=== PATIENT | male | born 1980 | race African-American/Black ===

== ENCOUNTER 2024-09-12 13:00 | Outpatient (AMB) | payer OTHER, SELFPAY ==
--- NOTE | 2024-09-12 13:05 | A.OFFPC_ITS ---
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 Allergies No Known Allergies Allergy (Verified 09/12/24 13:28) Medication List - Last Reconciled 09/12/24 by Mervat Berry CNP No Known Home Meds Tobacco use date assessed: 09/12/24 Dental Screening Dental Screen Date: 09/12/24 Did you have a dental visit in the last 12 months?: Yes Did you have a dental problem in the last 6 months where you did not have access to dental care?: No Was dental information given to patient?: Patient has dentist HPI HPI Comments History of Present Illness Details The patient presents to establish care and address sleep apnea and other general health maintenance issues. Last PCP: [facility]. Last office visit/CPE: 10/2023. Last comprehensive lab work: April 2024. The patient is a 44-year-old male presenting to establish care and address ongoing health concerns. The patient reports a history of obstructive sleep apnea, which was diagnosed in 2016. He has been using a CPAP machine since diagnosis but reports that the machine is now outdated and is not functioning optimally. The patient was unable to obtain a new machine due to a lapse in communication with the prior physician. The patient also has a history of hyperlipidemia, which was identified via blood work as being on the higher end but is not currently managed with medication. There is also a familial history of high cholesterol, as the patient's mother has high levels as well. Additionally, the patient mentions a deviated nasal septum that may contribute to nasal congestion and sleep disturbances. The issue was identified approximately 15 years ago but has not been surgically addressed. The patient reports a history of appendectomy with no complications and no current medications besides testosterone replacement therapy (TRT) and multivitamins. He exercises regularly and generally maintains a healthy diet but does have a noted sweet tooth. The patient reports smoking cigars approximately twice a week, with increased frequency during warmer months, and has been doing so consistently for about two years. Alcohol consumption is limited to one or two beers twice a week. 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 - Exercises regularly, 3-6 times a week. - Diet includes healthy foods with occas ional sweets. - Resides in [place]. - Does not use recreational drugs. - Drinks alcohol occasionally, 1-2 beers , twice a week. - Smokes cigars approximately twice a we ek, depending on weather. - No cigarette smoking or vaping noted. Health Maintenance - Reports an outdated CPAP machine for s leep apnea, needs replacement. - Immunization history includes an unkno wn date of last tetanus booster. - No flu vaccine received this season. D eclines flu vaccine. - BMI recorded as 32.5 with obesity clas sification noted but also acknowledges muscular build. - Recent dental checkup within the last six months. - Recent vision check and acquisition of reading glasses within the past year. Labs - Labs: Previous comprehensive blood sharri t done in April. [facility] Medical History (Updated 09/12/24 @ 14:09 by Mervat Berry CNP) Headache Surgical History (Updated 09/12/24 @ 13:22 by Nancy Oscar) Hx of appendectomy Family History (Updated 09/12/24 @ 13:23 by Nancy Oscar) Mother High cholesterol Social History Housing: House Patient Tobacco Use Status: Current someday Tobacco user Tobacco use type: Cigar Years Smoked: Smoked 2 cigas weekly for the past 2 years e-Cigarette/Vaping Use: Never Used Second Hand Smoke Exposure: No service: No Current occupational status: employed Current occupation: [employer] Current occupational exposures/hazards: No Cognitive needs: No Hearing needs: No Vision needs: No Questionnaire PHQ-9 Over the last 2 weeks, how often have you been bothered by any of the following problems? 1. Little interest or pleasure in doing things: not at all 2. Feeling down, depressed, or hopeless: not at all 3. Trouble falling or staying asleep, or sleeping too much: not at all 4. Feeling tired or having little energy: not at all 5. Poor appetite or overeating: not at all 6. Feeling bad about yourself - or that you are a failure or have let yourself or your family down: not at all 7. Trouble concentrating on things, such as reading the newspaper or watching television: not at all 8. Moving or speaking so slowly that other people could have noticed. Or the opposite - being so fidgety or restless that you have been moving around a lot more than usual: not at all 9. Thoughts that you would be better off or of hurting yourself in some way: not at all Total score: 0 Depression Screening Interpretation: Negative Depression Screening Done: Yes 40584 - PHQ-9 Billing: Yes Source: Developed by Drs. David Medina, Candi Cano, Jeb Lagunas and colleagues, with an educational abdi from [employer]. Thrive Questionnaire Date Thrive assessed: 09/12/24 I am a: Patient What is your living situation today?: I have a steady place to live Within the past 12 months, did the food you bought not last and you didn't have the money to get more?: Never true Within the past 12 months, did you worry whether your food would run out before you got money to buy more?: Never true Do you have trouble paying for medicines?: No Do you have trouble getting transportation to medical appointments?: No Do you have trouble paying your heating and electricity bill?: No Do you have trouble taking care of your child, family member or friend?: No Do you have trouble with day-to-day activities such as bathing, preparing meals, shopping, managing finances, etc.?: No Are you currently unemployed and looking for a job?: No Are you interested in more education?: No Please select the resources that you would like help with: None Currently or been in a relationship where the following occur: No concerns reported THRIVE Score: 0 AUDIT C Alcohol Use Questionnaire (AUDIT-C) 1. How often do you have a drink containing alcohol?: 2-4 times a month 2. How many drinks containing alcohol do you have on a typical day when you are drinking?: 1 or 2 3. How often do you have six or more drinks on one occasion?: Never Total Score: 2 Score Reviewed/Action Taken: Yes HONEY-7 AMB Questionnaire HONEY-7 Date HONEY - 7 assessed: 09/12/24 Feeling nervous, anxious, or on edge: 0 = Not at all Not being able to stop or control worryin = Not at all Worrying too much about different things: 0 = Not at all Trouble relaxin = Not at all Being so restless that it is hard to sit still: 0 = Not at all Becoming easily annoyed or irritable: 0 = Not at all Feeling afraid as if something awful might happen: 0 = Not at all Total HONEY-7 score (0-4 normal; 5-9 mild; 10-14 moderate; 15-21 severe): 0 Source: Developed by Drs. David Medina, Candi Cano, Jeb Lagunas and colleagues, with an educational abdi from [employer]. HONEY-7 Assessment Billing HONEY-7 Assessment Tool: HONEY-7 Assessment 98745 Review of Systems Const Details: Const Denies chills, Denies fatigue, Denies fever(s), Denies headache(s) and Denies weakness ENT Denies dizziness and Denies headache(s) Card Denies chest pain, Denies lightheadedness, Denies dyspnea and Denies other (Palpitations) Resp Denies cough, Denies dyspnea, Denies wheezing and Denies other ( shortness of breath) GI Denies abdominal pain, Denies melena, Denies hematochezia, Denies change in bowel habits, Denies dyspepsia and Denies nausea Denies hematuria and Denies dysuria Musc Denies abnormal gait, Denies myalgias, Denies arthralgias, Denies numbness and Denies tingling Skin/Breast Denies rash, Denies unusual bruising and Denies wounds Neuro Denies abnormal gait, Denies dizziness, Denies headache(s), Denies memory loss, Denies numbness, Denies Sensory deficit (Neuro), Denies tingling and Denies weakness Psych Denies anxiety, Denies depression, Denies memory loss Endo Denies cold intolerance, Denies fatigue, Denies heat intolerance, Denies polydipsia and Denies polyuria Aller/Immun Denies wheezing Physical exam (Primary Care) Vital Signs: Last Vital Signs Temp 97.3 F 09/12/24 13:18 Pulse 76 09/12/24 13:18 Resp 16 09/12/24 13:18 BP 117/63 09/12/24 13:18 Pulse Ox 96 09/12/24 13:18 Oxygen Delivery Method Room Air 09/12/24 13:18 BMI result Body Mass Index 32.5 Tobacco/Smoking Status: Tobacco use Status Tobacco use date assessed 09/12/24 09/12/24 13:17 Patient Tobacco Use Status Current someday Tobacco 09/12/24 13:17 Tobacco use type Cigar 09/12/24 13:17 e-Cigarette/Vaping Use Never Used 09/12/24 13:17 PHQ-9: PHQ-9 Score PHQ-9: Total score 0 09/12/24 13:09 Depression Screening Interpretation: Negative Thrive Assessment: Date of Thrive Assessment Date Thrive assessed 09/12/24 09/12/24 13:09 Currently or been in a relationship where the following occur: No concerns reported Const Other: General: no acute distress and well developed Nutritional Appearance: well nourished Orientation/consciousness: patient oriented x3 HENMT Head: Yes normocephalic and Yes atraumatic Eyes General: appearance normal, both eyes and all related structures Pupils: Equal, round and reactive pupils present EOM: EOMs intact bilaterally Resp Effort & Inspection: normal respiratory effort Auscultation: clear to auscultation bilaterally Cardio Rate: regular rate Rhythm: regular rhythm Heart sounds: S1 normal heart sound present, S2 normal heart sound present, no gallops, no murmurs and no rubs GI Palpation (GI): No Abdominal aortic bruit present, Soft to palpation, nontender, No hepatosplenomegaly present and No Rebound tenderness present Auscultation: normal bowel sounds General: Yes no CVA tenderness Back/Spine/Pelvis Back: no CVA tenderness Cervical Spine: cervical ROM normal and No Cervical spine tenderness Thoracic/Lumbar Spine: thoraco-lumbar ROM normal, No pain with thoraco-lumbar ROM, No thoracic spinal tenderness and No lumbar spinal tenderness Extrem General: Yes normal to inspection, No edema and No calf tenderness Skin General: warm and dry. Normal skin color. Normal skin turgor Lesions: no lesions Rashes: no rashes Trauma: no lacerations or abrasions Wounds: no wounds Nails: normal Neuro General: patient oriented x3, gait normal and no focal neuro deficit Cranial nerves: Yes Equal, round and reactive pupils present Cognition (Neuro): normal cognition Gait exam (Neuro): Normal gait present Sensory Exam: No Sensory deficit (Neuro) Psych Appearance: grossly normal Affect: normal affect Attitude: cooperative Thought process: Normal thought process present Coding Level of Care Code New Pt Prev Care 40-64y(01064) Diagnoses Sleep apnea G47.30 Hyperlipidemia E78.5 Deviated nasal septum J34.2 Preventative health care Z00.00 Additional Codes HONEY-7 Assessment Billing - HNOEY-7 Assessment Tool: HONEY-7 Assessment 85371 ([id number]) PHQ-9 - 81227 - PHQ-9 Billing: Yes ([id number]) Assessment & Plan Assessment & Plan (1) Sleep apnea: Code(s): G47.30 - Sleep apnea, unspecified Category: Medical Plan: Refer to sleep medicine in [place] for an appointment. Reinforcement on updating CPAP machine. (2) Hyperlipidemia: Code(s): E78.5 - Hyperlipidemia, unspecified Category: Medical Plan: Obtain previous blood work results to review cholesterol levels. No current medication; consider management options post-review. (3) Deviated nasal septum: Code(s): J34.2 - Deviated nasal septum Category: Medical Plan: Sleep medicine referral may evaluate ENT needs post-assessment. (4) Preventative health care: Code(s): Z00.00 - Encounter for general adult medical examination without abnormal findings Category: Medical Plan: Confirm tetanus booster status. Plan I discussed the need for reviewing the patient's blood work, focusing on cholesterol levels and other relevant lab results, before determining further management for hyperlipidemia. The patient was reminded to procure the CPAP equipment details and medical history to provide comprehensive care. I encouraged continued healthy lifestyle choices concerning diet and exercise. The purpose of referrals to both sleep medicine for CPAP evaluation and potential ENT consideration was explained, with the patient understanding the sequence of assessments required. The risks of ongoing cigar smoking were noted, while discussing the value of cutback efforts. Potential for updated tetanus immunization was mentioned, based on existing records. Orders: Referrals Sleep Medicine Referral G47.30 - Sleep apnea, unspecified, J34.2 - Deviated nasal septum Patient Instructions: - Obtain and provide previous lab results from April for review. - Schedule referral appointment with sleep medicine in [place]. - Consider scheduling for a new CPAP machine as advised. - Maintain regular physical activity and balanced dietary habits. - Confirm tetanus immunization status and consider flu vaccination. - Schedule a physical examination for October. - Follow up for further management as advised post-lab review. Patient was informed and verbally consented to the use of an ambient scribe for clinic note documentation during this visit.
[2024-09-12 13:18] VITALS: BP 117/63; PULSE 76; RESP 16; TEMP 36.3; O2SAT 96; BMI 32.5
--- OUTSIDE RECORDS SUMMARY | 2024-09-19 13:53 | XMS_ITS ---
Author Organization [facility] Address [address], [place] [id number] Care Team Providers Care Sole Filler Name Role Phone PURA NAE Primary Care Provider ALLERGIES No Known Allergies REASON FOR REFERRAL Reason Please call [facility] to renew patient's CPAP machine orders Diagnosis 1 Obstructive sleep ap bismark (G47.33) Referral Organization [facility] Referring Provider First Name NAE Referring Provider Last Name ELYSIAN Referring Provider Speciality Nurse Baylee powers Referred Organization [facility] Referred Address [address], [id number], Referred Provider Specialty Sleep Medici ne Referral Priority Routine Reason surgical consult for deviated septum please, does not matter who he sees Diagnosis 1 Deviated nasal septu m (J34.2) Referral Organization [facility] Referring Provider First Name NAE Referring Provider Last Name ELYSIAN Referring Provider Speciality Nurse Baylee powers Referred Organization [facility] Referred Address [address], [phone], Referred Provider Specialty Ear, nose an d throat surgeon General Notes KIRSTIN ANDUJAR 0 10/20/2023 02:46:16 PM >demographics, referral and ov note faxed to [facility] [phone] Referral Priority Routine REASON FOR VISIT Annual CPE MEDICATIONS Medication SIG (Take, Route, Fr equency, Duration) Notes Start Date End Date Status Vitamin D3 Active DHEA Active Multi Complete - as directed Orally Active Brielle 3 Active SOCIAL HISTORY Tobacco Use: Social History Observation Description Date Details (start date - stop date) Never Smoker NA - NA Sex Assigned At : Social History Observation Description Sex Assigned At Unknown Tobacco Use/Smoking Question Answer Notes Tobacco use: nonsmoker Section Notes: Smokes cigars - 2 x per week Lives in [place], [place] with , 3 sons and nephew PROBLEMS Problem Type ICD Code Onset Dates Problem Status W/U Status Risk SNOMED Code Notes Problem Hypercholesterolemia (E78.00) Active confirmed Hypercholestero lemia (38422846) Problem Benign prostatic hyperplasia without lower urinary tract symptoms (N40.0) Active confirmed Benign pros tatic hypertrophy without outflow obstruction (806487781) Problem Obstructive sleep apnea (G47.33) Active confirmed Obstructive s leep apnea (36464768) Problem Deviated nasal septu m (J34.2) Active confirmed Deviated nasal septum (654096176) VITAL SIGNS Blood pressure systolic 128 mm Hg 10/18/19 24 Blood pressure diastolic 72 mm Hg 024 Heart Rate 86 /min 10/18/2023 Height 73.5 in 10/18/2023 Weight 247.4 lbs 10/18/2023 BMI 32.19 kg/m2 10/18/2023 Oximetry 98 % 10/18/2023 Height-cm 186.69 cm 10/18/2023 Weight-kg 112.22 kg 10/18/2023 Encounters Encounter Location Date Provider Diagnosis [facility], [address] [id number] 10/18/2023 NAE CAMACHO Annual visit for general adult medical examination with abnormal findings Z00.01 ; Depression screen Z13.31 ; Encounter for screening examination for mental health and behavioral disorders, unspecified Z13.30 ; Alcohol screening Z13.39 ; Benign prostatic hyperplasia without lower urinary tract symptoms N40.0 ; Obstructive sleep apnea G47.33 and Deviated nasal septum J34.2 ASSESSMENTS Encounter Date Diagnosis Assessment Notes Treatment Notes Treatment Clinical Notes Section Notes 10/18/2023 Annual visit for general adult medical examination with abnormal findings (ICD-10 - Z00.01) The exam today was without concern. We discussed short and long-term health goals. The exam today was without concerns, states feel safe at home. Reports having working CO2 and Smoke detectors. Encouraged to wear sunscreen. Reports wearing a seatbelt when driving or as a passenger. Encourage regular exercise of moderate intensity 30 min 5x/week. 10/18/2023 Depression screen (ICD-10 - Z13.31) PHQ9 Score: 2 low risk for major depressive disorder 10/18/2023 Encounter for screening examination for mental health and behavioral disorders, unspecified (ICD-10 - Z13.30) CAGE Questions Adapted to Include Drug Use (CAGE-AID) 1. Have you ever felt you ought to cut down on your drinking or drug use? N 2. Have people annoyed you by criticizing your drinking or drug use? N 3. Have you felt bad or guilty about your drinking or drug use? N 4. Have you ever had a drink or used drugs first thing in the morning to steady your nerves or to get rid of a hangover (eye-warehouse picker)? N Total Score: 0 Scoring: Item responses on the CAGE questions are scored 0 for no and 1 for yes answers, with a higher score being an indication of alcohol problems. A total score of two or greater is considered clinically significant. 10/18/2023 Alcohol screening (ICD-10 - Z13.39) CAGE Questions Adapted to Include Drug Use (CAGE-AID) 1. Have you ever felt you ought to cut down on your drinking or drug use? N 2. Have people annoyed you by criticizing your drinking or drug use? N 3. Have you felt bad or guilty about your drinking or drug use? N 4. Have you ever had a drink or used drugs first thing in the morning to steady your nerves or to get rid of a hangover (eye-warehouse picker)? N Total Score: 0 Scoring: Item responses on the CAGE questions are scored 0 for no and 1 for yes answers, with a higher score being an indication of alcohol problems. A total score of two or greater is considered clinically significant. 10/18/2023 Benign prostatic hyperplasia without lower urinary tract symptoms (ICD-10 - N40.0) 10/18/2023 Obstructive sleep apnea (ICD-10 - G47.33) 10/18/2023 Deviated nasal septum (ICD-10 - J34.2) 10/18/2023 Other Labs for f/u Increase statin to 20 mg-tolerating well! Will add CoQ10 Abnormal labs at last f/u-EKG done today, normal sinus rythym-no evidence of ischemic changes. Scanned into patient docs PLAN OF TREATMENT Treatment Notes Assessment Notes Annual visit for general taylor lt medical examination with abnormal findings The exam today was without concern. We discussed short and long-term health goals. The exam today was without concerns, states feel safe at home. Reports having working CO2 and Smoke detectors. Encouraged to wear sunscreen. Reports wearing a seatbelt when driving or as a passenger. Encourage regular exercise of moderate intensity 30 min 5x/week. Depression screen PHQ9 Score: 2 low risk for major depressive disorder Encounter for screening exam ination for mental health and behavioral disorders, unspecified CAGE Questions Adapted to Include Drug Use (CAGE-AID) 1. Have you ever felt you ought to cut down on your drinking or drug use? N 2. Have people annoyed you by criticizing your drinking or drug use? N 3. Have you felt bad or guilty about your drinking or drug use? N 4. Have you ever had a drink or used drugs first thing in the morning to steady your nerves or to get rid of a hangover (eye-warehouse picker)? N Total Score: 0 Scoring: Item responses on the CAGE questions are scored 0 for no and 1 for yes answers, with a higher score being an indication of alcohol problems. A total score of two or greater is considered clinically significant. Alcohol screening CAGE Questions Adapted to Include Drug Use (CAGE-AID) 1. Have you ever felt you ought to cut down on your drinking or drug use? N 2. Have people annoyed you by criticizing your drinking or drug use? N 3. Have you felt bad or guilty about your drinking or drug use? N 4. Have you ever had a drink or used drugs first thing in the morning to steady your nerves or to get rid of a hangover (eye-warehouse picker)? N Total Score: 0 Scoring: Item responses on the CAGE questions are scored 0 for no and 1 for yes answers, with a higher score being an indication of alcohol problems. A total score of two or greater is considered clinically significant. Other Labs for f/u Increas e statin to 20 mg-tolerating well! Will add CoQ10 Abnormal labs at last f/u-EKG done today, normal sinus rythym-no evidence of ischemic changes. Scanned into patient docs Referrals Referral Date Details Please call [facility] to renew patient's CPAP machine orders , [address] [place] [address], [place], [place], [id number], @[email or web address], surgical consult for deviated septum please, does not matter who he sees , [address] [place] [address], [place], [place], [phone], @[facility], Next Appt Details Follow Up: 6 Months, Reason: f/u wellness Progress Notes * GRACIE ESTRADAOB:1980 (43 yo M)Acc No.[id number]:10/18/2023 Progress Note Patient:??SURESH ESTRADA Provider:??Nae Camacho DNP :1980?Age:43 Y?Sex:Ma le Date:10/18/2023 Phone: Address:[address], [facility] [id number] Subjective: * Chief Complaints: * ?Annual CPE * HPI: ?Patient Care Team:?Sample Maker:??[facility].? Providers/Specialists: TRT through [facility]. ?Visit info:? Suresh presents today for Annual CPE. ?c/o - discuss sinuses, has history of deviated septum and has become worse. Harder to breath through nose, Rt. side >Lt. side. Referral to ENT required. ?Also needs referral for new CPAP - [employer] [facility] provide equipment - last study over 6yrs ago. * ROS:?General / Constitutional:?Patient denies??fatigue, headache, lightheadedness, weakness.?Ophthalmologic:?Patient denies??blurry vision, change in vision, eye pain.?ENT:?Patient denies??decreased hearing, difficulty in swallowing, dry mouth, ear pain, sore throat.?Respiratory:?Patient denies??chest pain, cough, shortness of breath.?Cardiovascular:?Patient denies??dizziness, irregular heartbeat, palpitations, weakness.?Gastrointestinal:?Patient denies??abdominal pain, blood in stool, heartburn.?Genitourinary:?Patient denies??blood in the urine, difficulty urinating, frequent urination.?Neurologic:?Patient denies??low back pain, tingling / numbness, tremor.?Psychiatric:?Patient denies??anxiety, depressed mood, difficulty sleeping, substance abuse.? * Medical History:?? * Surgical History:??Appendect maryana 2011Vasectomy 2017Wisdom teeth * Ocular Surgical History:?? * Hospitalization/Major Diagno stic Procedure:?? * Family History:??Father: ali ve 66 yrs, No health concerns.??Mother: alive 67 yrs, Hyperlipidemia.??Paternal Grandfather: , Heart attack.??Brother: alive, No known health concerns.??Sister: alive, No known health concerns.??3 son(s) - healthy. .?? * Social History:?Tobacco Use:?Tobacco Use/Smoking?Tobacco use:??nonsmoker ?Drugs/Alcohol:?Do you smoke marijuana?: Denies. ?Do you drink alcohol?: Yes, Socially. ?Smokes cigars - 2 x per week ?Lives in [place], [place] with , 3 sons and nephew. * Medications:??TakingVitamin D3 DHEA Multi Complete - Capsule as directed Orally Brielle 3 Medication List reviewed and reconciled with the patientTaking Vitamin D3 Taking DHEA Taking Multi Complete - Capsule as directed Orally Taking Brielle 3 Medication List reviewed and reconciled with the patient * Allergies:??N.K.D.A.no[Aller gies Verified] Objective: * Vitals:??BP:128/72mm Hg, HR: 86/min, Oxygen sat %:98%, Wt:247.4lbs, Wt-k.22 kg, Ht: 73.5 in, Ht-cm: 186.69 cm, BMI:32.19Index, Body Surface Area: 2.41. * Examination: ?General Examination: ?General appearance:??alert, pleasant, well-nourished and in no acute distress .?Head:??normocephalic, atraumatic .?Eyes:??normal, pupils equal, round, reactive to light and accommodation, extraocular movement intact (EOMI) .?Ears:??normal, auditory canal clear, tympanic membrane intact and clear, light reflex present .?Nose:??nares patent, septum intact, sinuses nontender bilaterally .?Oral cavity:??with good dentition, mucosa moist, tongue is midline .?Throat:??clear, pharynx normal, uvula midline .?Neck / thyroid:??carotid pulses are normal and without bruits, neck is supple, with full range of motion and no cervical lymphadenopathy .?Lymph nodes:??no axillary, supraclavicular or inguinal lymphadenopathy, no cervical lymphadenopathy .?Skin:??skin is warm and dry, with no rashes, good skin turgor and normal hair distribution .?Heart:??regular rate and rhythm without murmurs, gallops, clicks or rubs .?Lungs:??clear to auscultation bilaterally, with good air movement and no rales, rhonchi or wheezes .?Chest:??chest wall with no costochondral junction tenderness, no rib deformity and normal shape and expansion .?Breasts:??breast exam is normal without lesions or masses, discharge or erythema .?Abdomen:??soft with good bowel sounds, nontender, and no masses or hepatosplenomegaly .?Rectal:??not examined .?Back:??normal, without kyphoscoliosis or tenderness, full range of motion without difficulty .?Male genitourinary:??deferred.?Musculoskeletal:??FROM,.?Extremities:??normal extremity with no clubbing, cyanosis or edema, full range of motion, good capillary refill in nail beds .?Peripheral pulses:??normal 2+ arterial pulses .?Neurologic:??alert and oriented, cognitive exam grossly normal, cranial nerves 2-12 grossly intact, deep tendon reflexes 2+ symmetrical, gait normal, normal upper and lower extremity motor strength and function .?Psych:??cooperative with exam, maintains good eye contact, normal affect/mood .? Assessment: * Assessment: 1.??Annual visit for general adult medical examination with abnormal findings - Z00.01 (Primary)??2.??Depression screen - Z13.31??3.??Encounter for screening examination for mental health and behavioral disorders, unspecified - Z13.30??4.??Alcohol screening - Z13.39??5.??Benign prostatic hyperplasia without lower urinary tract symptoms - N40.0??6.??Obstructive sleep apnea - G47.33??7.??Deviated nasal septum - J34.2?? Plan: * Treatment: 2.??Depression screen?? Notes: PHQ9 Score: 2 low risk for major depressive disorder? 3.??Encounter for screening examination for mental health and behavioral disorders, unspecified?? Notes: CAGE Questions Adapted to Include Drug Use (CAGE-AID) 1. Have you ever felt you ought to cut down on your drinking or drug use? N 2. Have people annoyed you by criticizing your drinking or drug use? N 3. Have you felt bad or guilty about your drinking or drug use? N 4. Have you ever had a drink or used drugs first thing in the morning to steady your nerves or to get rid of a hangover (eye-warehouse picker)? N Total Score: 0 Scoring: Item responses on the CAGE questions are scored 0 for no and 1 for yes answers, with a higher score being an indication of alcohol problems. A total score of two or greater is considered clinically significant.? 4.??Alcohol screening?? Notes: CAGE Questions Adapted to Include Drug Use (CAGE-AID) 1. Have you ever felt you ought to cut down on your drinking or drug use? N 2. Have people annoyed you by criticizing your drinking or drug use? N 3. Have you felt bad or guilty about your drinking or drug use? N 4. Have you ever had a drink or used drugs first thing in the morning to steady your nerves or to get rid of a hangover (eye-warehouse picker)? N Total Score: 0 Scoring: Item responses on the CAGE questions are scored 0 for no and 1 for yes answers, with a higher score being an indication of alcohol problems. A total score of two or greater is considered clinically significant.? 5.??Obstructive sleep apnea? Referral To:Sleep Medicine ?Reason:Please call [facility] to renew patient's CPAP machine orders 6.??Deviated nasal septum? Referral To:Ear, nose and throat surgeon ?Reason:surgical consult for deviated septum please, does not matter who he sees 7.??Others?? Notes: Labs for f/u Increase statin to 20 mg-tolerating well! Will add CoQ10 Abnormal labs at last f/u-EKG done today, normal sinus rythym-no evidence of ischemic changes. Scanned into patient docs? * Procedure Codes:??42530 EDI F EMOTIONAL/BEHAV ASSMT, Units: 2.00 * Preventive Medicine:?Last CPE: 2020 Work physical ?Colonoscopy: No ?Endoscopy: No ?Covid Vac: Yes ?Flu Vac: No. * Follow Up:??6 Months (Reason : f/u wellness) Care Plan: * Problems:?? * Billing Information: * Visit Code:?? 59950 Preventive Care Est Pt. Age 40-64. * Procedure Codes:?? 49149 BRIEF EMOTIONAL/BEHAV ASSMT. Units: 2.00. * Sign off status: Completed true * Provider:??Nae Camacho DNP Date:??0 10/18/2023 History and Physical Notes * HPI (History of Present Illness) Category Sub-Category Detail Notes Category Not es Patient Care Team Sample Maker: [facility] Providers[facility]Special ists[facility] info Suresh presents today for Annual CPE. c/o - discuss sinuses, has history of deviated septum and has become worse. Harder to breath through nose, Rt. side > Lt. side. Referral to ENT required. Also needs referral for new CPAP - [employer] provide equipment - last study over 6yrs ago. Examination Category Sub-Category Detail Notes Category Not es General Examination General appearance: alert, p leasant, well-nourished and in no acute distress Head: normocephalic, atrau matic Eyes: normal, pupils equal , round, reactive to light and accommodation, extraocular movement intact (EOMI) Ears: normal, auditory can al clear, tympanic membrane intact and clear, light reflex present Nose: nares patent, septum intact, sinuses nontender bilaterally Throat: clear, pharynx donovan l, uvula midline Neck / thyroid: carotid pulses are n ormal and without bruits, neck is supple, with full range of motion and no cervical lymphadenopathy Heart: regular rate and rhy thm without murmurs, gallops, clicks or rubs Chest: chest wall with no c ostochondral junction tenderness, no rib deformity and normal shape and expansion Lungs: clear to auscultatio n bilaterally, with good air movement and no rales, rhonchi or wheezes Abdomen: soft with good bowel sounds, nontender, and no masses or hepatosplenomegaly Neurologic: alert and oriented, cognitive exam grossly normal, cranial nerves 2- 12 grossly intact, deep tendon reflexes 2+ symmetrical, gait normal, normal upper and lower extremity motor strength and function Skin: skin is warm and dry , with no rashes, good skin turgor and normal hair distribution Extremities: normal extremity wit h no clubbing, cyanosis or edema, full range of motion, good capillary refill in nail beds Peripheral pulses: normal 2+ arterial p ulses Back: normal, without kyph oscoliosis or tenderness, full range of motion without difficulty Breasts: breast exam is donovan l without lesions or masses, discharge or erythema Musculoskeletal: FROM, Male genitourinary: deferred Lymph nodes: no axillary, supracl avicular or inguinal lymphadenopathy, no cervical lymphadenopathy Rectal: not examined Psych: cooperative with exa m, maintains good eye contact, normal affect/mood Oral cavity: with good dentition, mucosa moist, tongue is midline Consultation Request Notes Referral Date Referring Provider Referred Provider Not es 10/18/2023 NAE CAMACHO , Please call [facility] to renew patient's CPAP machine orders 10/18/2023 NAE CAMACHO , surgical co nsult for deviated septum please, does not matter who he sees
--- OUTSIDE RECORDS SUMMARY | 2024-09-19 13:53 | XMS_ITS ---
Author Organization [facility] Address [address] [place] [id number] Care Team Providers Care Deal Architect Name Role Phone NAE CAMACHO Primary Care Provider [phone] ALLERGIES No Known Allergies REASON FOR VISIT cpe, lab review SOCIAL HISTORY Tobacco Use: Social History Observation Description Date Details (start date - stop date) Never Smoker NA - NA Sex Assigned At : Social History Observation Description Sex Assigned At Unknown Tobacco Use/Smoking Question Answer Notes Tobacco use: nonsmoker Section Notes: Smokes cigars - 2 x per week Lives in [place], [place] with , 3 sons and nephew Encounters Encounter Location Date Provider Diagnosis [facility], [address] [id number] 08/10/2023 NAE CAMACHO PLAN OF TREATMENT No Information Progress Notes * GRACIE ESTRADAOB:1980 (44 yo M)Acc No.[id number]:08/10/2023 Progress Note Patient:??COLUMBA ESTRADA Provider:??Nae Camacho DNP :1980?Age:43 Y?Sex:Lauren le Date:08/10/2023 Phone: Address:[address] [place] [address] Subjective: * Chief Complaints: * ?1. Cpe, lab review. * HPI: ?Patient Care Team:? Providers/Specialists: TRT through [facility]. * Medical History:??Sleep Apne a (uses CPAP). * Surgical History:??Appendect maryana 2011, Vasectomy 2017, [place] teeth . * Family History:??Father: ali ve 66 yrs, No health concerns.??Mother: alive 67 yrs, Hyperlipidemia.??Paternal Grandfather: , Heart attack.??Brother: alive, No known health concerns.??Sister: alive, No known health concerns.??3 son(s) - healthy. .?? * Social History:?Tobacco Use:?Tobacco Use/Smoking?Tobacco use:??nonsmoker ?Drugs/Alcohol:?Do you smoke marijuana?: Denies. ?Do you drink alcohol?: Yes, Socially. ?Smokes cigars - 2 x per week Lives in [place], [place] with , 3 sons and nephew. * Allergies:??N.K.D.A. Objective: Assessment: Plan: * Treatment: * Preventive Medicine:?Last CPE: 2020 Work physical Colonoscopy: No Endoscopy: No Covid Vac: Yes Flu Vac: No. Care Plan: * Problems:?? * Billing Information: * Visit Code:?? * Procedure Codes:?? * Sign off status: Pending * Provider:??Nae Camacho DNP Date:??1 History and Physical Notes * HPI (History of Present Illness) Category Sub-Category Detail Notes Category Not es Patient Care Team Providers/ Specialists: TRT through [facility]
--- OUTSIDE RECORDS SUMMARY | 2024-09-19 13:53 | XMS_ITS | Patient Health Record ---
Author Organization [facility], [facility] Address [address] [place], [place] [phone] Care Team Providers Care Knowledge Management Advisor Name Role Phone PURA NAE Primary Care Provider [phone] ALLERGIES No Known Allergies REASON FOR REFERRAL Reason Please call J and L to renew patient's CPAP machine orders Diagnosis 1 Obstructive sleep ap bismark (G47.33) Referral Organization [facility] Referring Provider First Name NAE Referring Provider Last Name CHOWCHILLA Referring Provider Speciality Nurse Baylee powers Referred Organization [facility] Referred Address [address] [place], [place],[phone], Referred Provider Specialty Sleep Medici ne Referral Priority Routine Reason surgical consult for deviated septum please, does not matter who he sees Diagnosis 1 Deviated nasal septu m (J34.2) Referral Organization [facility] Referring Provider First Name NAE Referring Provider Last Name CHOWCHILLA Referring Provider Speciality Nurse Baylee powers Referred Organization [facility] Referred Address [address], [phone], Referred Provider Specialty Ear, nose an d throat surgeon General Notes KIRSTIN ANDUJAR 0 10/20/2023 02:46:16 PM >demographics, referral and ov note faxed to [facility] [phone] Referral Priority Routine MEDICATIONS Medication SIG (Take, Route, Fr equency, Duration) Notes Start Date End Date Status Vitamin D3 Active DHEA Active Multi Complete - as directed Orally Active [employer] 3 Active SOCIAL HISTORY Tobacco Use: Social History Observation Description Date Details (start date - stop date) Never Smoker NA - NA Sex Assigned At : Social History Observation Description Sex Assigned At Unknown Tobacco Use/Smoking Question Answer Notes Tobacco use: nonsmoker Section Notes: Smokes cigars - 2 x per week Lives in [place], [place] with , 3 sons and nephew Smokes cigars - 2 x per week Lives in [place], [place] with , 3 sons and nephew Smokes cigars - 2 x per week Lives in [place], [place] with , 3 sons and nephew Smokes cigars - 2 x per week Lives in [place], [place] with , 3 sons and nephew PROBLEMS Problem Type ICD Code Onset Dates Problem Status W/U Status Risk SNOMED Code Notes Problem Deviated nasal septu m (J34.2) Active confirmed Deviated nasal septum (520043053) Problem Benign prostatic hyperplasia without lower urinary tract symptoms (N40.0) Active confirmed Benign pros tatic hypertrophy without outflow obstruction (174758482) Problem Hypercholesterolemia (E78.00) Active confirmed Hypercholestero lemia (89099473) Problem Obstructive sleep apnea (G47.33) Active confirmed Obstructive s leep apnea (75341618) VITAL SIGNS Heart Rate 86 /min 10/18/2023 Height-cm 186.69 cm 10/18/2023 Oximetry 98 % 10/18/2023 Blood pressure diastolic 72 mm Hg 10/18/2023 Weight-kg 112.22 kg 10/18/2023 Height 73.5 in 10/18/2023 Blood pressure systolic 128 mm Hg 10/18/2023 Weight 247.4 lbs 10/18/2023 BMI 32.19 kg/m2 10/18/2023 Encounters Encounter Location Date Provider Diagnosis [address] [id number] 10/18/2023 NAE NEVES Annual visit for general adult medical examination with abnormal findings Z00.01 ; Depression screen Z13.31 ; Encounter for screening examination for mental health and behavioral disorders, unspecified Z13.30 ; Alcohol screening Z13.39 ; Benign prostatic hyperplasia without lower urinary tract symptoms N40.0 ; Obstructive sleep apnea G47.33 and Deviated nasal septum J34.[address] [id number] 12/02/2023 NAE NEVES ASSESSMENTS Encounter Date Diagnosis Assessment Notes Treatment [...] or to get rid of a hangover (eye-white sugar pan tank operator)? N Total Score: 0 Scoring: Item responses [...] or to get rid of a hangover (eye-white sugar pan tank operator)? N Total Score: 0 Scoring: Item responses [...] Scanned into patient docs PLAN OF TREATMENT No Information Insurance Providers Payer Name Payer Address Payer Phone Subscriber Number Group Number Insured Name Patient Relationship to Insured Coverage Start Date Coverage End Date [facility] [address] [place] [id number] COLUMBA ESTRADA Self - patient is the insured MEDICAL (GENERAL) HISTORY Medical History History ICD Code Sleep Apnea (uses CPAP) Surgical History Surgery Date(Month/Year) Appendectomy 2010 Vasectomy 2017 [place] teeth
--- OUTSIDE RECORDS SUMMARY | 2024-09-19 13:53 | XMS_ITS ---
Author Organization [facility], [facility] Address [address] [place] [id number] Care Team Providers Care Child Care Center Administrator Name Role Phone NAE NEVES Primary Care Provider [phone] REASON FOR VISIT ENT referral Encounters Encounter Location Date Provider Diagnosis [address] [id number] 12/02/2023 NAE NEVES PLAN OF TREATMENT No Information Progress Notes * GRACIE ESTRADAOB:1980 (43 yo M)Acc No.[id number]:12/02/2023 Patient:??COLUMBA ESTRADA :1980?Age:43 Y?Sex:Lauren longo Phone: Address:[address] [place] [address] * true * Date:??
== END 2024-09-12 16:07 | disposition home or self-care (01) ==
PROVIDERS: Visit Provider Nurse Practitioner Family
DX: G47.30 Sleep apnea, unspecified (principal); E78.5 Hyperlipidemia, unspecified; J34.2 Deviated nasal septum; Z00.00 Encounter for general adult medical examination without abnormal findings

== ENCOUNTER → 2024-09-12 13:00 | Outpatient (BNVA) | payer OTHER, SELFPAY | PROVIDERS: Visit Provider Nurse Practitioner Family | DX: G47.30 Sleep apnea, unspecified (principal); E78.5 Hyperlipidemia, unspecified; J34.2 Deviated nasal septum | CPT/HCPCS: 96127 ==

== ENCOUNTER 2024-10-05 13:51 | Outpatient (AMB) | payer OTHER, SELFPAY ==
--- OUTSIDE RECORDS SUMMARY | 2024-10-05 13:53 | XMS_ITS | Patient Health Record ---
Author Organization [facility], [facility] Address [address] [place], [place] [phone] Care Team Providers Care Server Systems Administrator Name Role Phone PURA NAE Primary Care Provider [phone] ALLERGIES No Known Allergies REASON FOR REFERRAL Reason Please call J and L to renew patient's CPAP machine orders Diagnosis 1 Obstructive sleep ap bismark (G47.33) Referral Organization [facility] Referring Provider First Name NAE Referring Provider Last Name OROVILLE Referring Provider Speciality Nurse Baylee powers Referred Organization [facility] Referred Address [address] [place], [phone], Referred Provider Specialty Sleep Medici ne Referral Priority Routine Reason surgical consult for deviated septum please, does not matter who he sees Diagnosis 1 Deviated nasal septu m (J34.2) Referral Organization [facility] Referring Provider First Name NAE Referring Provider Last Name OROVILLE Referring Provider Speciality Nurse Baylee powers Referred Organization [facility] Referred Address [address] [place] [place], [place],[phone], Referred Provider Specialty Ear, nose an d throat surgeon General Notes KIRSTIN ANDUJAR 0 10/20/2023 02:46:16 PM >demographics, referral and ov note faxed to [facility] [phone] Referral Priority Routine MEDICATIONS Medication SIG (Take, Route, Fr equency, Duration) Notes Start Date End Date Status Vitamin D3 Active DHEA Active Multi Complete - as directed Orally Active [place] 3 Active SOCIAL HISTORY Tobacco Use: Social History Observation Description Date Details (start date - stop date) Never Smoker NA - NA Sex Assigned At : Social History Observation Description Sex Assigned At Unknown Tobacco Use/Smoking Question Answer Notes Tobacco use: nonsmoker Section Notes: Smokes cigars - 2 x per week Lives in [place], [place] with , 3 sons and nephew Smokes cigars - 2 x per week Lives in [place], [place] with , 3 sons and nephew Smokes cigars - 2 x per week Lives in [place], [place] with , 3 sons and nephew Smokes cigars - 2 x per week Lives in [place], [place] with , 3 sons and nephew PROBLEMS Problem Type ICD Code Onset Dates Problem Status W/U Status Risk SNOMED Code Notes Problem Deviated nasal septu m (J34.2) Active confirmed Deviated nasal septum (033238451) Problem Benign prostatic hyperplasia without lower urinary tract symptoms (N40.0) Active confirmed Benign pros tatic hypertrophy without outflow obstruction (189167755) Problem Hypercholesterolemia (E78.00) Active confirmed Hypercholestero lemia (39415167) Problem Obstructive sleep apnea (G47.33) Active confirmed Obstructive s leep apnea (42140471) VITAL SIGNS Heart Rate 86 /min 10/18/2023 Height-cm 186.69 cm 10/18/2023 Oximetry 98 % 10/18/2023 Blood pressure diastolic 72 mm Hg 10/18/2023 Weight-kg 112.22 kg 10/18/2023 Height 73.5 in 10/18/2023 Blood pressure systolic 128 mm Hg 10/18/2023 Weight 247.4 lbs 10/18/2023 BMI 32.19 kg/m2 10/18/2023 Encounters Encounter Location Date Provider Diagnosis [address] [id number] 10/18/2023 NAE NEVES Annual visit for general adult medical examination with abnormal findings Z00.01 ; Depression screen Z13.31 ; Encounter for screening examination for mental health and behavioral disorders, unspecified Z13.30 ; Alcohol screening Z13.39 ; Benign prostatic hyperplasia without lower urinary tract symptoms N40.0 ; Obstructive sleep apnea G47.33 and Deviated nasal septum J34.[address] [id number] 12/02/2023 NAE NEVES ASSESSMENTS Encounter Date Diagnosis [...] or to get rid of a hangover (eye-customer care representative)? N Total Score: 0 Scoring: Item responses [...] or to get rid of a hangover (eye-customer care representative)? N Total Score: 0 Scoring: Item responses [...] Insured Coverage Start Date Coverage End Date [facility] [address] [place] [id number] COLUMBA ESTRADA Self - patient is the insured MEDICAL (GENERAL) HISTORY Medical History History ICD Code Sleep Apnea (uses CPAP) Surgical History Surgery Date(Month/Year) Appendectomy 2010 Vasectomy 2017 [place] teeth
--- OUTSIDE RECORDS SUMMARY | 2024-10-05 13:53 | XMS_ITS ---
Author Organization [facility], [facility] Address [address] [place] [phone] Care Team Providers Care Bilingual Sales Assistant Name Role Phone NAE NEVES Primary Care Provider REASON FOR VISIT ENT referral Encounters Encounter Location Date Provider Diagnosis [address] [id number] 12/02/2023 NAE NEVES PLAN OF TREATMENT No Information Progress Notes * GRACIE ESTRADAOB:1980 (43 yo M)Acc No.[id number]:12/02/2023 Patient:??COLUMBA ESTRADA :1980?Age:43 Y?Sex:Lauren longo Phone: Address:[address] [place] [address] * true * Date:??
--- OUTSIDE RECORDS SUMMARY | 2024-10-05 13:53 | XMS_ITS ---
Author Organization [facility], [facility] Address [address] [place] [phone] Care Team Providers Care Metal Fence Erector Name Role Phone NAE CAMACHO Primary Care Provider ALLERGIES No Known Allergies REASON FOR VISIT cpe, lab review SOCIAL HISTORY Tobacco Use: Social History Observation Description Date Details (start date - stop date) Never Smoker NA - NA Sex Assigned At : Social History Observation Description Sex Assigned At Unknown Tobacco Use/Smoking Question Answer Notes Tobacco use: nonsmoker Section Notes: Smokes cigars - 2 x per week Lives in [place], [place] with , 3 sons and nephew Encounters Encounter Location Date Provider Diagnosis [facility], [address] [id number] 08/10/2023 NAE CAMACHO PLAN OF TREATMENT No Information Progress Notes * GRACIE ESTRADAOB:1980 (44 yo M)Acc No.[id number]:08/10/2023 Progress Note Patient:??COLUMBA ESTRADA Provider:??Nae Camacho DNP :1980?Age:43 Y?Sex:Lauren le Date:08/10/2023 Phone: Address:[address] [place] [address] Subjective: * Chief Complaints: * ?1. Cpe, lab review. * HPI: ?Patient Care Team:? Providers/Specialists: TRT through [facility]. * Medical History:??Sleep Apne a (uses CPAP). * Surgical History:??Appendect maryana 2011, Vasectomy 2017, [place] teeth . * Family History:??Father: ali ve 66 yrs, No health concerns.??Mother: alive 67 yrs, Hyperlipidemia.??Paternal Grandfather: , Heart attack.??Brother: alive, No known health concerns.??Sister: alive, No known health concerns.??3 son(s) - healthy. .?? * Social History:?Tobacco Use:?Tobacco Use/Smoking?Tobacco use:??nonsmoker ?Drugs/Alcohol:?Do you smoke marijuana?: Denies. ?Do you drink alcohol?: Yes, Socially. ?Smokes cigars - 2 x per week Lives in [place], [place] with , 3 sons and nephew. [...] Patient Care Team Providers/ Specialists: TRT through [facility]
--- OUTSIDE RECORDS SUMMARY | 2024-10-05 13:53 | XMS_ITS ---
Author Organization [facility] Address [address], [place] [phone] Care Team Providers Care Concrete Conveyor Operator Name Role Phone PURA NAE Primary Care Provider ALLERGIES No Known Allergies REASON FOR REFERRAL Reason Please call J and L to renew patient's CPAP machine orders Diagnosis 1 Obstructive sleep ap bismark (G47.33) Referral Organization [facility] Referring Provider First Name NAE Referring Provider Last Name [place] Referring Provider Speciality Nurse Baylee powers Referred Organization [facility] Referred Address [address], [place],[phone], Referred Provider Specialty Sleep Medici ne Referral Priority Routine Reason surgical consult for deviated septum please, does not matter who he sees Diagnosis 1 Deviated nasal septu m (J34.2) Referral Organization [facility] Referring Provider First Name NAE Referring Provider Last Name [place] Referring Provider Speciality Nurse Baylee powers Referred Organization [facility] Referred Address [address], [place],[phone], Referred Provider Specialty Ear, nose an d throat surgeon General Notes KIRSTIN ANDUJAR 0 10/20/2023 02:46:16 PM >demographics, referral and ov note faxed to [facility] [phone] Referral Priority Routine REASON FOR VISIT Annual CPE MEDICATIONS Medication SIG (Take, Route, Fr equency, Duration) Notes Start Date End Date Status Vitamin D3 Active DHEA Active Multi Complete - as directed Orally Active [place] 3 Active SOCIAL HISTORY Tobacco Use: Social History Observation Description Date Details (start date - stop date) Never Smoker NA - NA Sex Assigned At : Social History Observation Description Sex Assigned At Unknown Tobacco Use/Smoking Question Answer Notes Tobacco use: nonsmoker Section Notes: Smokes cigars - 2 x per week Lives in [place], [place] with , 3 sons and nephew PROBLEMS Problem Type ICD Code Onset Dates Problem Status W/U Status Risk SNOMED Code Notes Problem Hypercholesterolemia (E78.00) Active confirmed Hypercholestero lemia (21831433) Problem Benign prostatic hyperplasia without lower urinary tract symptoms (N40.0) Active confirmed Benign pros tatic hypertrophy without outflow obstruction (813960794) Problem Obstructive sleep apnea (G47.33) Active confirmed Obstructive s leep apnea (64887904) Problem Deviated nasal septu m (J34.2) Active confirmed Deviated nasal septum (059877869) VITAL SIGNS Blood pressure systolic 128 mm Hg 10/18/19 24 Blood pressure diastolic 72 mm Hg 024 Heart Rate 86 /min 10/18/2023 Height 73.5 in 10/18/2023 Weight 247.4 lbs 10/18/2023 BMI 32.19 kg/m2 10/18/2023 Oximetry 98 % 10/18/2023 Height-cm 186.69 cm 10/18/2023 Weight-kg 112.22 kg 10/18/2023 Encounters Encounter Location Date Provider Diagnosis [facility], [address] [id number] 10/18/2023 NAE CAMACHO Annual visit for general [...] or to get rid of a hangover (eye-crusher tender)? N Total Score: 0 Scoring: Item responses [...] or to get rid of a hangover (eye-crusher tender)? N Total Score: 0 Scoring: Item responses [...] or to get rid of a hangover (eye-crusher tender)? N Total Score: 0 Scoring: Item responses [...] or to get rid of a hangover (eye-crusher tender)? N Total Score: 0 Scoring: Item responses [...] to renew patient's CPAP machine orders , [address] [place] [address], [place], [place], [phone], @[employer], surgical consult for deviated septum please, does not matter who he sees , [address] [place] [address], [place], [place], [phone], @[employer], Next Appt Details Follow Up: 6 Months, Reason: f/u wellness Progress Notes * GRACIE ESTRADAOB:1980 (43 yo M)Acc No.[id number]:10/18/2023 Progress Note Patient:??SUERSH ESTRADA Provider:??Nae Camacho DNP :1980?Age:43 Y?Sex:[place] le Date:10/18/2023 Phone: Address:[address], [facility] [phone] Subjective: * Chief Complaints: * ?Annual CPE * HPI: ?Patient Care Team:?Film Developer:??[facility].? Providers/Specialists: TRT through [employer]. ?Visit info:? Suresh presents today for Annual [...] - 2 x per week ?Lives in [place], [place] with , 3 sons and nephew. * Medications:??TakingVitamin D3 DHEA Multi Complete - Capsule as directed Orally [place] 3 Medication List reviewed and reconciled with the patientTaking Vitamin D3 Taking DHEA Taking Multi Complete - Capsule as directed Orally Taking [place] 3 Medication List reviewed and reconciled with [...] or to get rid of a hangover (eye-crusher tender)? N Total Score: 0 Scoring: Item responses [...] or to get rid of a hangover (eye-crusher tender)? N Total Score: 0 Scoring: Item responses [...] changes. Scanned into patient docs? * Procedure Codes:??15407 EDI F EMOTIONAL/BEHAV ASSMT, Units: 2.00 * Preventive Medicine:?Last CPE: 2020 Work physical ?Colonoscopy: No ?Endoscopy: No ?Covid Vac: Yes ?Flu Vac: No. * Follow Up:??6 Months (Reason : f/u wellness) Care Plan: * Problems:?? * Billing Information: * Visit Code:?? 01482 Preventive Care Est Pt. Age 40-64. * Procedure Codes:?? 47877 BRIEF EMOTIONAL/BEHAV ASSMT. Units: 2.00. * Sign off status: Completed true * Provider:??Nae Camacho DNP Date:??0 10/18/2023 History and Physical Notes * HPI (History of Present Illness) Category Sub-Category Detail Notes Category Not es Patient Care Team Film Developer: [facility] Providers/Special ists: TRT through [facility] Visit info Suresh presents today for [...]
[2024-10-05 14:01] VITALS: BMI 32.4
--- NOTE | 2024-10-05 14:01 | MHC.OFFVIS ---
Vital Signs 10/05/24 14:01 Height 6 ft 2 in Weight 252 lb BMI 32.4 Intake Visit Reasons: INP-DOROTHEA Intake Note: Patient presents for DOROTHEA. Has machine has not been using for 2 months. Allergies No Known Allergies Allergy (Verified 10/05/24 14:04) HPI Comments Details: 44 year old male referred to us by his PCP for sleep evaluation. 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 Bathroom break once per night, has a deviated septum, will send to ENT for evaluation. FH of hyperlipidemia. Morning headaches when he doesn't sleep well, wears reading glasses. Denies gait issues, vertigo, balance difficulties. Smokes cigars, 3-4 times a week to 1x every two weeks, drinks socially 1-2 beer. Mood, diet, and exercise are good. PFSH Medical History Headache Surgical History Hx of appendectomy Family History Mother High cholesterol Social History Housing: House Patient Tobacco Use Status: Current someday Tobacco user Tobacco use type: Cigar Years Smoked: Smoked 2 cigas weekly for the past 2 years e-Cigarette/Vaping Use: Never Used Second Hand Smoke Exposure: No service: No Current occupational status: employed Current occupation: [employer] Current occupational exposures/hazards: No Cognitive needs: No Hearing needs: No Vision needs: No Review of Systems ENT Reports Normal hearing present Neuro Reports Normal hearing present and Reports Abnormal speech present Physical Exam Vital Signs: BMI result Body Mass Index 32.4 Const General: cooperative, comfortable and no acute distress Nutritional Appearance: average body habitus Orientation/consciousness: patient oriented x3 HEENT Head: Yes other Face and sinus: Yes normal facial exam and Yes face symmetric Teeth and gingiva: other ([place] score of 3) Eyes Pupils: Equal, round and reactive pupils present Resp Effort & Inspection: normal respiratory effort and able to speak in complete sentences Neuro General: patient oriented x3 Cranial nerves: Yes CN's II-XII intact bilaterally, Yes Facial sensation intact/muscles of mastication intact, Yes Equal, round and reactive pupils present, Yes Normal accommodation reflex present, Yes Bilaterally intact EOM present, Yes Nystagmus not present, Yes Normal facial strength present, Yes Midline tongue present, Yes Symmetric palate elevation present, Yes Normal hearing present, Yes Ability to bilaterally rotate head present and Yes Ability to bilaterally elevate shoulders present Cognition (Neuro): normal cognition Speech: Abnormal speech present Gait exam (Neuro): Normal gait present Motor exam (neuro): 5/5 motor strength present throughout and Normal motor muscle tone present throughout Deep tendon reflexes (DTR's): Right triceps reflex intensity grade: 2+, Left triceps reflex intensity grade: 2+, Rt Biceps (C5, C6): 2+, Left biceps reflex intensity grade: 2+, Right brachioradialis reflex intensity grade: 2+, Left brachioradialis reflex intensity grade: 2+, Right patellar reflex intensity grade: 2+ and Left patellar reflex intensity grade: 2+ Psych Appearance: grossly normal Speech and movement: Normal speech and movement present Affect: normal affect Attitude: cooperative Thought content: Normal thought content present Insight: Good insight present (Psych) Assessment & Plan Assessment & Plan (1) Deviated nasal septum: Code(s): J34.2 - Deviated nasal septum Category: Medical (2) Loud snoring: Code(s): R06.83 - Snoring Category: Medical (3) Sleep apnea: Code(s): G47.30 - Sleep apnea, unspecified Category: Medical Plan HST -Sleep Apnea, snoring, gasping for air. ENT referral for deviated septum evaluation and treatment. Orders: Referrals Ear/Nose/Throat Referral J34.2 - Deviated nasal septum, R06.83 - Snoring Coding Level of Care Code New Pt Level 3 (25567) Diagnoses Deviated nasal septum J34.2 Loud snoring R06.83 Sleep apnea G47.30 Time Spent (min) 30 Comment Evaluation Sleep Questionnaire Difficulty falling asleep: No Difficulty staying asleep?: Yes Number of arousals: 3-4 times Snoring: Yes Witnessed apneas: Yes Gasping arousals: Yes Nocturia: No GERD: No Vivid dreams: No Acting out dreams: No Abnormal behavior in sleep: No Abnormal movements in sleep: No Morning headaches: Yes (Wears a mouthgaurd since his machine doesn't work) Excessive daytime sleepiness: Yes Daytime naps: Yes Restless legs: No Hallucinations: No Sleep paralysis: No Drop attacks: No Sleep Study: Yes (Sep 2016) CPAP: Yes (Does not work properly with [employer]. )
== END 2024-10-05 14:35 | disposition home or self-care (01) ==
PROVIDERS: Visit Provider Physician Assistant Medical
DX: J34.2 Deviated nasal septum (principal); R06.83 Snoring; G47.30 Sleep apnea, unspecified
CPT/HCPCS: 99203

== ENCOUNTER → 2024-12-11 07:49 | Outpatient (REF) | payer OTHER, SELFPAY ==
--- OUTSIDE RECORDS SUMMARY | 2024-12-11 07:54 | XMS_ITS | Clinical Summary ---
Author Organization [facility] Address [address] [place] [address] Care Team Providers Care Coin Machine Collector Supervisor Name Role Phone Boni Davison MD Primary Care Provider [phone] Allergies No known active allergies Medications Medication Sig Dispensed Refills Start Date End Date Status MULTIPLE VITAMIN OR QD 0 Activ e CPAP Historical (HISTORICAL CPAP) Inhale into the lungs. CPAP Pressure 6-16 [employer] 0 12/24/2015 Active Active Problems Problem Noted Date Obstructive sleep apnea AHI 8 11/05/2015 Headache 06/30/2006 Hyperlipidemia Immunizations Name Administration Dates Next Due TD (STATE SUPPLIED FOR ADULTS AND CHILDREN) 0810/2003 Tdap 10/16/2014 Family History Medical History Relation Name Comments No Known Problems Son 1 No Known Problems Son 2 No Known Problems Son 3 Relation Name Status Comments Brother Alive healthy Father Alive stomach problem s- GERD and gas; knee pain Maternal Grandfather HI benedicto g Maternal Grandmother Dialysi s Mother Alive healthy x milagros sterol Paternal Grandfather HI benedicto g Paternal Grandmother (Age 97) ol d age Sister Alive healthy Son 1 Alive Son 2 Alive Son 3 Alive Social History Tobacco Use Types Packs/Day Years Used Date Smoking Tobacco: Never Smokeless Tobacco: Never Alcohol Use Standard Drinks/Week Comments Yes 0 (1 standard drink = 0.6 oz pure alcohol) occasional; less than 1 per per 2 months Sex Assigned at Date Recorded Not on file Last Filed Vital Signs Vital Sign Reading Time Taken Comments Blood Pressure 122/68 10/07/2020 10:30 AM EST Pulse 64 10/07/2020 10:30 AM EST Temperature 36.5 ??C (97.7 ??F) 10/07/2020 1 0:30 AM EST Respiratory Rate 16 10/07/2020 10:3 0 AM EST Oxygen Saturation 98% 11/05/2015 9:27 AM EST Inhaled Oxygen Concentration - - Weight 106.4 kg (234 lb 9.6 oz) 020 10:30 AM EST Height 185.4 cm (6' 1 ) 10/07/2020 10:3 0 AM EST Body Mass Index 30.95 10/07/2020 10:30 AM EST Plan of Treatment Health Maintenance Due Date Last Done Comments Covid-19 Vaccine (#1) 1980 BASELINE HEALTH EXAM 40-64 04/16/202001/02, 12/28/2018, 10/16/2014 CHOLESTEROL SCREENING 01/03/2024 01/02/2019, 006 INFLUENZA (#1) 2024 12/28/2018 (Refused) BMI CHECK/ADVISE 10/11/2024 12/28/2018, , 09/13/2015, Additional history exists DTAP/TDAP/TD (2 - Td or Tdap) 10/16/2024 10/16/2014, 05/11/2004 PNEUMOCOCCAL VACCINE FOR HIG H RISK PATIENTS (#1) 2045 Care Teams Coin Machine Collector Supervisor Relationship Specialty Start Date End Date Boni Davison MD [address] [place] [id number] PCP - General Internal Medicine 09/09/21
--- OUTSIDE RECORDS SUMMARY | 2024-12-11 07:54 | XMS_ITS ---
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 Name Role Phone NAE CAMACHO Primary Care Provider ALLERGIES No Known Allergies REASON FOR REFERRAL Reason Please call J and L to renew patient's CPAP machine orders Diagnosis 1 Obstructive sleep ap bismark (G47.33) Referral Organization [facility] Referring Provider First Name NAE Referring Provider Last Name REMLAP Referring Provider Speciality Nurse Baylee powers Referred Organization [facility] Referred Address [address], [id number], Referred Provider Specialty Sleep Medici ne Referral Priority Routine Reason surgical consult for deviated septum please, does not matter who he sees Diagnosis 1 Deviated nasal septu m (J34.2) Referral Organization [facility] Referring Provider First Name NAE Referring Provider Last Name REMLAP Referring Provider Speciality Nurse Baylee powers Referred Organization [facility] Referred Address [address], [id number], Referred Provider Specialty Ear, nose an d throat surgeon General Notes KIRSTIN ANDUJAR 0 10/20/2023 02:46:16 PM >demographics, referral and ov note faxed to [facility] [phone] Referral Priority Routine REASON FOR VISIT Annual CPE MEDICATIONS Medication SIG (Take, Route, Fr equency, Duration) Notes Start Date End Date Status Vitamin D3 Active DHEA Active Multi Complete - as directed Orally Active [place] 3 Active SOCIAL HISTORY Tobacco Use: Social History Observation Description Date Details (start date - stop date) Never Smoker NA - NA Sex Assigned At : Social History Observation Description Sex Assigned At Unknown Tobacco Use/Smoking Question Answer Notes Tobacco use: nonsmoker Section Notes: Smokes cigars - 2 x per week Lives in [place], [place] with , 3 sons and nephew PROBLEMS Problem Type ICD Code Onset Dates Problem Status W/U Status Risk SNOMED Code Notes Problem Hypercholesterolemia (E78.00) Active confirmed Hypercholestero lemia (51708325) Problem Benign prostatic hyperplasia without lower urinary tract symptoms (N40.0) Active confirmed Benign pros tatic hypertrophy without outflow obstruction (746538560) Problem Obstructive sleep apnea (G47.33) Active confirmed Obstructive s leep apnea (27627688) Problem Deviated nasal septu m (J34.2) Active confirmed Deviated nasal septum (043673855) VITAL SIGNS Blood pressure systolic 128 mm Hg 10/18/19 24 Blood pressure diastolic 72 mm Hg 024 Heart Rate 86 /min 10/18/2023 Height 73.5 in 10/18/2023 Weight 247.4 lbs 10/18/2023 BMI 32.19 kg/m2 10/18/2023 Oximetry 98 % 10/18/2023 Height-cm 186.69 cm 10/18/2023 Weight-kg 112.22 kg 10/18/2023 Encounters Encounter Location Date Provider Diagnosis [facility], [address] [id number] 10/18/2023 NAE CAMACHO Annual visit for general [...] or to get rid of a hangover (eye-mushroom grower)? N Total Score: 0 Scoring: Item responses [...] or to get rid of a hangover (eye-mushroom grower)? N Total Score: 0 Scoring: Item responses [...] or to get rid of a hangover (eye-mushroom grower)? N Total Score: 0 Scoring: Item responses [...] or to get rid of a hangover (eye-mushroom grower)? N Total Score: 0 Scoring: Item responses [...] to renew patient's CPAP machine orders , [address] [place] [address], [place], [place], [phone], @[facility], surgical consult for deviated septum please, does not matter who he sees , [address] [place] [address], [place], [place], [phone], @[facility], Next Appt Details Follow Up: 6 Months, Reason: f/u wellness Progress Notes * GRACIE ESTRADAOB:1980 (43 yo M)Acc No.[id number]:10/18/2023 Progress Note Patient:??SURESH ESTRADA Provider:??Nae Camacho DNP :1980?Age:43 Y?Sex:Ma le Date:10/18/2023 Phone: Address:[address], [facility] [id number] Subjective: * Chief Complaints: * ?Annual CPE * HPI: ?Patient Care Team:?Raisin Washer:??[facility].? Providers/Specialists: TRT through [facility]. ?Visit info:? Suresh presents today for Annual [...] - 2 x per week ?Lives in [place], [place] with , 3 sons and nephew. * Medications:??TakingVitamin D3 DHEA Multi Complete - Capsule as directed Orally [place] 3 Medication List reviewed and reconciled with the patientTaking Vitamin D3 Taking DHEA Taking Multi Complete - Capsule as directed Orally Taking [place] 3 Medication List reviewed and reconciled with [...] or to get rid of a hangover (eye-mushroom grower)? N Total Score: 0 Scoring: Item responses [...] or to get rid of a hangover (eye-mushroom grower)? N Total Score: 0 Scoring: Item responses [...] changes. Scanned into patient docs? * Procedure Codes:??87261 EDI F EMOTIONAL/BEHAV ASSMT, Units: 2.00 * Preventive Medicine:?Last CPE: 2020 Work physical ?Colonoscopy: No ?Endoscopy: No ?Covid Vac: Yes ?Flu Vac: No. * Follow Up:??6 Months (Reason : f/u wellness) Care Plan: * Problems:?? * Billing Information: * Visit Code:?? 27982 Preventive Care Est Pt. Age 40-64. * Procedure Codes:?? 49349 BRIEF EMOTIONAL/BEHAV ASSMT. Units: 2.00. * Sign off status: Completed true * Provider:??Nae Camacho DNP Date:??0 10/18/2023 History and Physical Notes * HPI (History of Present Illness) Category Sub-Category Detail Notes Category Not es Patient Care Team Raisin Washer: [facility] Providers[facility]Special ists[facility] Visit info Suresh presents [...]
--- OUTSIDE RECORDS SUMMARY | 2024-12-11 07:54 | XMS_ITS | Encounter Summary ---
Author Organization [facility] Address [address] [place] [address] Care Team Providers Care Lumber Carrier Name Role Phone Anthony Goode MD Primary Care Provider Unavail able Carolynn Olivera MD Primary Care Provider Unavaila Boni Woody MD Primary Care Provider [phone] Encounter Details Date Type Department Care Team Description 11/12/2015 [employer] Ambassador Report Medical Records [address] [place] [address] Willy Richey MD Social History Tobacco Use Types Packs/Day Years Used Date Smoking Tobacco: Never Smokeless Tobacco: Never Alcohol Use Standard Drinks/Week Comments Yes 0 (1 standard drink = 0.6 oz pure alcohol) occasional; less than 1 per per 2 months Sex Assigned at Date Recorded Not on file documented as of this encounter Plan of Treatment Not on file documented as of this encounter Visit Diagnoses Not on filedocumented in this encounter Care Teams Lumber Carrier Relationship Specialty Start Date End Date Anthony Goode MD PCP - General 06/22/06 11/07/18 Carolynn Olivera MD PCP - General Internal Medicine 11/08/18 09/08/21 Boni Davison MD [address] [place] [phone] PCP - General Internal Medicine 09/09/21 documented as of this encounter
--- OUTSIDE RECORDS SUMMARY | 2024-12-11 07:54 | XMS_ITS | Patient Health Record ---
Author Organization [facility] [facility] Address [address] [place] [id number] Care Team Providers Care Plug Making Operator Name Role Phone PURANAE Primary Care Provider [phone] ALLERGIES No Known Allergies REASON FOR REFERRAL No Information MEDICATIONS Medication SIG (Take, Route, Fr equency, Duration) Notes Start Date End Date Status Vitamin D3 Active DHEA Active Multi Complete - as directed Orally Active [place] 3 Active SOCIAL HISTORY Tobacco Use: Social History Observation Description Date Details (start date - stop date) Never Smoker NA - NA Sex Assigned At : Social History Observation Description Sex Assigned At Unknown Tobacco Use/Smoking Question Answer Notes Tobacco use: nonsmoker Section Notes: Smokes cigars - 2 x per week Lives in [place], [place] with , 3 sons and nephew Smokes cigars - 2 x per week Lives in [place], [place] with , 3 sons and nephew Smokes cigars - 2 x per week Lives in [place], [place] with , 3 sons and nephew Smokes cigars - 2 x per week Lives in [place], [place] with , 3 sons and nephew PROBLEMS Problem Type ICD Code Onset Dates Problem Status W/U Status Risk SNOMED Code Notes Problem Deviated nasal septu m (J34.2) Active confirmed Deviated nasal septum (885981726) Problem Benign prostatic hyperplasia without lower urinary tract symptoms (N40.0) Active confirmed Benign pros tatic hypertrophy without outflow obstruction (949791270) Problem Hypercholesterolemia (E78.00) Active confirmed Hypercholestero lemia (15351221) Problem Obstructive sleep apnea (G47.33) Active confirmed Obstructive s leep apnea (07624679) PLAN OF TREATMENT No Information Insurance Providers Payer Name Payer Address Payer Phone Subscriber Number Group Number Insured Name Patient Relationship to Insured Coverage Start Date Coverage End Date [facility] [address] [place], [place] [id number] COLUMBA ESTRADA Self - patient is the insured MEDICAL (GENERAL) HISTORY Medical History History ICD Code Sleep Apnea (uses CPAP) Surgical History Surgery Date(Month/Year) Appendectomy 2011 Vasectomy 2017 [place] teeth
--- OUTSIDE RECORDS SUMMARY | 2024-12-11 07:54 | XMS_ITS ---
Author Organization [facility] Address [address] [place] [phone] Care Team Providers Care Pen Tender Name Role Phone NAE NEVES Primary Care Provider [phone] REASON FOR VISIT ENT referral Encounters Encounter Location Date Provider Diagnosis [address] [phone] 12/02/2023 NAE NEVES PLAN OF TREATMENT No Information Progress Notes * GRACIE ESTRADAOB:1980 (43 yo M)Acc No.[id number]:12/02/2023 Patient:??COLUMBA ESTRADA :1980?Age:43 Y?Sex:Lauren longo Phone: Address:[address] [place] [address] * true * Date:??
--- OUTSIDE RECORDS SUMMARY | 2024-12-11 07:54 | XMS_ITS ---
Author Organization [facility], [facility] Address [address] [place] [phone] Care Team Providers Care Range Master Name Role Phone NAE CAMACHO Primary Care Provider [phone] ALLERGIES No Known Allergies REASON FOR VISIT cpe, lab review SOCIAL HISTORY Tobacco Use: Social History Observation Description Date Details (start date - stop date) Never Smoker NA - NA Sex Assigned At : Social History Observation Description Sex Assigned At Unknown Tobacco Use/Smoking Question Answer Notes Tobacco use: nonsmoker Section Notes: Smokes cigars - 2 x per week Lives in [place], [place] with , 3 sons and nephew Encounters Encounter Location Date Provider Diagnosis [facility], [address] [phone] 08/10/2023 NAE CAMACHO PLAN OF TREATMENT No Information Progress Notes * GRACIE ESTRADAOB:1980 (44 yo M)Acc No.[id number]:08/10/2023 Progress Note Patient:??COLUMBA ESTRADA Provider:??Nae Camacho DNP :1980?Age:43 Y?Sex:Lauren le Date:08/10/2023 Phone: Address:[address] [place] [address] Subjective: * Chief Complaints: * ?1. Cpe, lab review. * HPI: ?Patient Care Team:? Providers/Specialists: TRT through [facility]. * Medical History:??Sleep Apne a (uses CPAP). * Surgical History:??Appendect maryana 2011, Vasectomy 2017, [place] teeth . * Family History:??Father: ali ve 66 yrs, No health concerns.??Mother: alive 67 yrs, Hyperlipidemia.??Paternal Grandfather: , Heart attack.??Brother: alive, No known health concerns.??Sister: alive, No known health concerns.??3 son(s) - healthy. .?? * Social History:?Tobacco Use:?Tobacco Use/Smoking?Tobacco use:??nonsmoker ?Drugs/Alcohol:?Do you smoke marijuana?: Denies. ?Do you drink alcohol?: Yes, Socially. ?Smokes cigars - 2 x per week Lives in [place], [place] with , 3 sons and nephew. [...] Patient Care Team Providers/ Specialists: TRT through [facility]
== END ==
LOC: HO.SL 07:49
PROVIDERS: PCP Physician Assistant Medical; Visit Provider Physician Assistant Medical
DX: G47.30 Sleep apnea, unspecified (principal); R53.83 Other fatigue; G47.9 Sleep disorder, unspecified; R06.83 Snoring; R40.0 Somnolence
CPT/HCPCS: 95806

== ENCOUNTER → 2024-12-11 08:23 | Outpatient (BNV) | payer OTHER, SELFPAY | PROVIDERS: PCP Physician Assistant Medical; Visit Provider Psychiatry & Neurology Neurology | DX: G47.33 Obstructive sleep apnea (adult) (pediatric) (principal) | CPT/HCPCS: 95806 ==

== ENCOUNTER 2025-01-03 14:18 | Outpatient (AMB) | payer OTHER, SELFPAY ==
--- NOTE | 2025-01-03 14:23 | MHC.OFFVIS ---
Vital Signs 01/03/25 14:24 Height 6 ft 2 in Weight 251 lb 4 oz BMI 32.3 BP 118/78 Blood Pressure Location Lt brachial Position Sitting Pulse 91 Pulse Source Pulse Oximeter Pulse Oximetry (%) 98 Oxygen Delivery Method Room Air Intake Visit Reasons: 3 mnts f/u appt Intake Note: Patient presents for 3 month follow up for DOROTHEA. Patient no longer uses CPAP. Using mouth guard. Looking for new Sleep study for new machine. Allergies No Known Allergies Allergy (Verified 01/03/25 14:29) HPI Comments Details: 44 year old male referred to us by his PCP for sleep evaluation. 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 Bathroom break once per night, has a deviated septum, will have him f/u with ENT for the deviated septum. He is on testosterone therapy 0.3mg, 3x a week with [facility]. Has bruxism, tried mouth guard and it did not work for him. Morning headaches with pressure in the frontal sinus 5/10 and light sensitive, blurry vision, dizziness and nausea which turns into a migraine 1x a week, he denies sensitivity to noise and smell, he denies gait issues, vertigo and balance difficulties. He has environmental allergies and notices his headaches come on when he doesn't sleep well. He smokes cigars, 3-4 times a week, and drinks socially 1-2 beer. Mood, diet, and exercise are good. [facility] Medical History Headache Surgical History Hx of appendectomy Family History Mother High cholesterol Social History Housing: House Patient Tobacco Use Status: Current someday Tobacco user Tobacco use type: Cigar Years Smoked: Smoked 2 cigas weekly for the past 2 years e-Cigarette/Vaping Use: Never Used Second Hand Smoke Exposure: No service: No Current occupational status: employed Current occupation: [employer] Current occupational exposures/hazards: No Cognitive needs: No Hearing needs: No Vision needs: No Review of Systems ENT Reports Normal hearing present Neuro Reports Normal hearing present and Reports Abnormal speech present Physical Exam Vital Signs: Last Vital Signs Pulse 91 01/03/25 14:24 BP 118/78 01/03/25 14:24 Pulse Ox 98 01/03/25 14:24 Oxygen Delivery Method Room Air 01/03/25 14:24 BMI result Body Mass Index 32.3 Const General: cooperative, comfortable and no acute distress Nutritional Appearance: average body habitus Orientation/consciousness: patient oriented x3 HEENT Head: Yes other Face and sinus: Yes normal facial exam and Yes face symmetric Teeth and gingiva: other ([place] score of 3) Eyes Pupils: Equal, round and reactive pupils present Resp Effort & Inspection: normal respiratory effort and able to speak in complete sentences Neuro General: patient oriented x3 Cranial nerves: Yes CN's II-XII intact bilaterally, Yes Facial sensation intact/muscles of mastication intact, Yes Equal, round and reactive pupils present, Yes Normal accommodation reflex present, Yes Bilaterally intact EOM present, Yes Nystagmus not present, Yes Normal facial strength present, Yes Midline tongue present, Yes Symmetric palate elevation present, Yes Normal hearing present, Yes Ability to bilaterally rotate head present and Yes Ability to bilaterally elevate shoulders present Cognition (Neuro): normal cognition Speech: Abnormal speech present Gait exam (Neuro): Normal gait present Motor exam (neuro): 5/5 motor strength present throughout and Normal motor muscle tone present throughout Deep tendon reflexes (DTR's): Right triceps reflex intensity grade: 2+, Left triceps reflex intensity grade: 2+, Rt Biceps (C5, C6): 2+, Left biceps reflex intensity grade: 2+, Right brachioradialis reflex intensity grade: 2+, Left brachioradialis reflex intensity grade: 2+, Right patellar reflex intensity grade: 2+ and Left patellar reflex intensity grade: 2+ Psych Appearance: grossly normal Speech and movement: Normal speech and movement present Affect: normal affect Attitude: cooperative Thought content: Normal thought content present Insight: Good insight present (Psych) Assessment & Plan Assessment & Plan (1) Loud snoring: Onset Date: ~01/03/25 Code(s): R06.83 - Snoring Category: Medical (2) Fatigue due to sleep pattern disturbance: Code(s): R53.83 - Other fatigue; G47.9 - Sleep disorder, unspecified Category: Medical (3) Deviated nasal septum: Code(s): J34.2 - Deviated nasal septum Category: Medical (4) Migraine headache without aura: Comment: Headaches are mild with allergies / Migraines are occuring 1x week. Code(s): G43.009 - Migraine without aura, not intractable, without status migrainosus Category: Medical Qualifiers: Status migrainosus presence: without status migrainosus Intractability: intractable Qualified Code(s): G43.019 - Migraine without aura, intractable, without status migrainosus (5) Nasal congestion with rhinorrhea: Code(s): R09.81 - Nasal congestion; J34.89 - Other specified disorders of nose and nasal sinuses Category: Medical Plan Migraines without Aura, start Sumatriptan PRN migraine. Reviewed results from [facility] moderate sleep apnea AHI is 19 and Oxygen Armando to 80%. Congestion, Rhinorrhea with watery eyes. Fatigue: Labs from [facility] will f/u via portal message. Orders: Referrals Allergy & Immunology Referral J34.89 - Other specified disorders of nose and nasal sinuses, R09.81 - Nasal congestion Medications: New sumatriptan succinate take 1 tab at onset of headache; if no relief may repeat 1 tab after at least 2 hrs; max = 4 tabs/24 hr PO 12 tabs 0RF migraines MDD 100mg daily G43.019 - Migraine without aura, intractable, without status migrainosus Patient Instructions: Sleep Hygiene provided: set a scheduled bedtime and wake time to help regulate the circadian rhythm and balance the release of pituitary hormones. Sleep in a dark room, temperatures below 68 degrees, and no devices n bed. Limit caffeinated products 6 hours prior to bed, and limit fluids 2-4 hours prior to bed. Gentle night yoga, diffusing essential oils, and playing soft music can be relaxing. ENT f/u for deviated septum, difficulty breathing at night. CPAP order is sent, he snores loudly, mouth-guard did not work for him, his AHI was 19 and Oxygen Armando to 80%. Migraines use a migraine cap, and use peppermint oil on the temples, take Sumatriptan with the onset of Migraine, if it does not abort, take one additional tablet 2 hours later. No more than 2 tablets in a 24 hour period. Allergies: limit pet dander, get an air purifier for the home/ bedroom. Change out home filters with Hepa filters. F/U with [facility] [employer]. Coding Level of Care Code Est Pt Level 4 (11984) Diagnoses Loud snoring R06.83 Fatigue due to sleep pattern disturbance R53.83; G47.9 Deviated nasal septum J34.2 Intractable migraine without aura and without status migrainosus G43.019 Status migrainosus presence: without status migrainosus Intractability: intractable Nasal congestion with rhinorrhea R09.81; J34.89
[2025-01-03 14:24] VITALS: BP 118/78; PULSE 91; O2SAT 98; BMI 32.3
== END 2025-01-03 15:01 | disposition home or self-care (01) ==
LOC: HO.HSMS 14:18
PROVIDERS: Visit Provider Physician Assistant Medical
DX: R06.83 Snoring (principal); R53.83 Other fatigue; G47.9 Sleep disorder, unspecified; J34.2 Deviated nasal septum; G43.019 Migraine without aura, intractable, without status migrainosus; R09.81 Nasal congestion; J34.89 Other specified disorders of nose and nasal sinuses
CPT/HCPCS: 99214

== ENCOUNTER 2025-07-27 07:55 | Outpatient (AMB) | payer OTHER, SELFPAY ==
--- OUTSIDE RECORDS SUMMARY | 2025-07-27 07:59 | XMS_ITS | Data Portability ---
Author Organization [place] - [facility], Allergy Address [address] [address] Care Team Providers Care Clinical Trial Associate Name Role Phone [facility] Primary Care Provider Assessment Encounter Date Assessment Date Assessment LastModified by Organization Details LastModified Time 06/07/2025 06/07/2025 45 year old male presents today for evaluation of septal deviation. On exam, the nasal dorsum is deviated to the right. There is 2+ right sided septal deviation and bilateral turbinate hypertrophy. No rhinorrhea or purulence. Given history of recurrent sinusitis, recommended CT sinus for further evaluation. He is not concerned about cosmesis and is not interested in rhinoplasty He will follow up with a surgeon to review the results and to discuss septoplasty. Patient agrees with the plan and all questions were answered. [email or web address] Not available 06/07/2025 12:10:18 06/28/2025 06/28/2025 45 year old male presents today for follow-up of nasal obstruction that has been refractory to medical therapy. On exam, the nasal dorsum is deviated to the right. There is right sided septal deviation and bilateral turbinate hypertrophy. No rhinorrhea or purulence. 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 I do think this is the reason for some of his facial pain and pressure as well as upper obstruction. We discussed options including continue medical management versus surgical therapy, he would like to perform the latter. - Continue nasal steroids and washes - 1 week postop visit with splint removal We reviewed the clinic findings today with the patient and had an extensive discussion on the natural history of their symptoms and the pathology causing them. The patient has progressive and bothersome symptoms noted previously in the HPI consistent with CRSsNP, Nasal Septal deviation, and turbinate hypertrophy , which have not improved with optimal medical therapy which include chcf use of nasal saline, nasal steroid,. These findings were confirmed on Nasal Endoscopy and CT . Options were discussed, including conservative management, further medical management with topical, oral, or immunotherapy, and/or surgical intervention. Surgical Discussion: Surgical plan would consist of: Septoplasty, Bilateral Inferior Turbinate Submucosal Reduction, Bilateral maxillary antrostomy and removal of vivek bullosa bilateral We discussed the risks, benefits, and alternatives of surgery, which include bleeding, infection, scarring, nasal septal perforation, saddle nose deformity, cranial base injury, CSF leak, orbital injury, vision loss/diplopia, need for postoperative splinting, or need for further procedures. The expected recovery period was reviewed, which will likely include postoperative debridements and splint removal. The patient understands this is a chronic condition and that any comorbid allergic/inflamm atory/immunologi c components will also require ongoing management. After reviewing their options, the patient would like to pursue the surgical route. We will work on getting this scheduled at their earliest convenience. The patient understands they can reach out anytime to further clarify questions or concerns. CT/MRI Location & Date for Image guidance: Xoran on 06/28/2025 [email or web address] Not available 06/28/2025 10:32:21 Plan of Treatment Reminders Order Date Submit Date Provider Last Modified By Organization Details Last Modified Time Details Appointments Post Op 2025 03:30P RAFAELA LUEVANO Not available Not available Not available Post Op 2025 03:15P Tiesha Munoz DO Not available Not available Not available Lab None recorded. Referral None recorded. Procedures None recorded. Surgeries septoplas ty (SURG) 2024 025 [email or web address] Not available 07/13/2025 13:20:11 resection of vivek bullosa (SURG) 2024 025 [email or web address] Not available 07/13/2025 13:20:12 submucous resection inferior turbinate (SURG) 2024 025 [email or web address] Not available 07/13/2025 13:20:11 endoscopy , nasal/sin us, w/ maxillary antrostom y & tissue removal (SURG) 2024 025 [email or web address] Not available 07/13/2025 13:20:[address], sinuses, w/o contrast 2024 025 [email or web address] Not available 06/15/2025 10:30:31 Medication Orders None recorded. Patient TargetsNo targets recorded. Patient Instructions Encounter Date Encounter Id Patient Instructions Last Modified By Organization Details Last Modified Time 06/28/2025 [id number] nasal septum repair: before your surgery [email or web address] Not available 07/13/2025 12:57:22 Reason for Referral None Reported. Results Created Date Observation Date Name Description Value Unit Range Abnormal Flag Note LastModifiedBy Organization Detail LastModifiedTime 07/02/20 25 06/28/2025 CT, sinus es, w/o contr ast No observ ation record ed. [email or web address] [facility] [address], [place], [address], 07/02/2025 14:13:52 Result Notes None recorded. Problems Name Problem SNOMED Code Status Onset Date Resolution Date Notes Provider Name and Address Organization Details Recorded Time Deviated nasal septum 999680737 Active 2024 YOGI MORAN PA-C [address] [address], [place], [address], [facility] - [facility] 11:10:04 Nasal congestion 47072272 Active 2024 YOGI MORAN PA-C [address] [address], [place], [address], [facility] - [facility] [place] 11:10:20 Chronic sinusitis 63401524 Active 2024 Chase Munoz DO [address] [address], [place], [address], [facility] - [facility] 09:03:41 Hypertrophy of nasal turbinates 02527909 Active 2024 Chase Munoz [address], [address], [place] - [facility] [place] 10:31:23 Vivek bullosa 774912963 Active 2024 Chase Munoz, [address], [address], [place] - [facility] [place] 10:31:30 Problem Notes None recorded. Procedures Surgical History Date Name Laterality Status Provider Name and Address Organization Details Recorded Time 06/28/2025 CT sinus - X[facility] completed Chase Tammy, [address], [address], [facility] - [facility] [place] 06/28/2025 10:29:22 Imaging Results None recorded. Procedure Notes None recorded. Medical Equipment None Reported. Allergies No known drug allergies Medications Name Sig Start Date Stop Date Status Note LastModified by Organization Details LastModified Time triamcinolone acetonide 55 mcg nasal spray aerosol INHALE 2 SPRAYS EACH NOSTRIL ONCE A DAY active Not Available Not Available No t Available Vitals Date Recorded Body height Body mass index (BMI) Body weight Provider Name and Address Organization Details Last Updated DateTime 06/07/2025 187.96 cm 30.8 kg/m2 901209.17 g Rika Ramos [place] - [facility] [place] 06/07/2025 09:59:55 Date Recorded Body height Provider Name an d Address Organization Details Last Updated DateTime 06/28/2025 187.96 cm MECCA PALMER [place] - [facility] [place] 06/28/2025 10:03:54 Social History None recorded. Functional Status None recorded. Mental Status None recorded. Family History Nothing Reported. Medical History No medical history recorded. Past Encounters Encounter ID Performer Location Encounter Start Date Encounter Closed Date Diagnosis/Indication Diagnosis SNOMED-CT Code Diagnosis ICD10 Code Diagnosis IMO Codes Diagnosis Note [id number] YOGI MORAN PA-C [facility] [address] [place] [address] 06/07/2025 09:40:58 06/07/2025 10:19:08 Deviated nasal septum 670018203 J34.2 40720 Nasal congestion 2098591 0 R09.81 [id number] Chase Munoz, DO [facility] [address] [place] [address] 06/28/2025 09:46:50 06/28/2025 10:30:40 Deviated nasal septum 564413021 J34.2 86875 Nasal congestion 4321526 0 R09.81 29480 Chronic sinusitis 081237 00 J32.8 96482 Hypertroph y of nasal turbinates 86091500 J34.3 6464150 Vivek bullosa 838239961 J34.89 [id number] Health Concerns Section Related Observation LastModified by Organization Detai ls LastModified Time None Recorded Concern Status LastModified by Organization Details LastModified Time None Recorded Advance Directives Directive None Recorded Payers Insurance Date Sequence Insurance Name Policy Number Policy Mendenhall Covered Member ID Mendenhall Member ID Guarantor Name 07/06/2025 1 [facility] INDEMNITY PLAN (PPO) [id number] 1 Suresh Jacob [id number] Suresh Jacob 06/07/2025 1 [facility] IN[employer]MNITY PLAN (INDEMNITY) [id number] Suresh Jacob [id number] Suresh Jacob Notes Date Note Type Note Provider Name and Address Organization Details Recorded Time 06/07/2025 text/html ROS as noted in the HPI 45 year old male presents today for evaluation of septal deviation. He reports nasal fracture over 15 years ago and is not concerned about the appearance of his external nose. He states that he was previously seen by ENT and septoplasty was recommended, but states that it was not a good time for him to undergo surgery. He states that his symptoms have been getting progressively worse since then. He notes difficulty breathing through his nose bilaterally. He uses a CPAP and feels as though he does not get a lot of air through the nose. He states that he still feels as though he is not fully benefiting from the CPAP due to the septal deviation. He also notes he gets sinusitis about 2-3 times per year when the seasons change. Symptoms including facial pain/swelling and worsening nasal congestion. Denies rhinitis. He takes OTC cold remedies for these symptoms. He recently had allergy tested at [facility] and reports allergy to dust mites. He has been using over the counter Flonase with minimal improvement. Denies prior sinus imaging or nasal surgeries. YOGI MORAN PA-C 100 [facility],[address], [address], [facility] 06/07/2025 12:11:34 06/28/2025 text/html ROS as noted in the HPI Interval history: He has been consistent with his nasal sprays but his congestion is unchanged. This does prevent him from exercising well in some cases and he is looking for more improvement. 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 Previously seen by Yogi on 06/07/2025: 45 year old male presents today for evaluation of septal deviation. He reports nasal fracture over 15 years ago and is not concerned about the appearance of his external nose. He states that he was previously seen by ENT and septoplasty was recommended, but states that it was not a good time for him to undergo surgery. He states that his symptoms have been getting progressively worse since then. He notes difficulty breathing through his nose bilaterally. He uses a CPAP and feels as though he does not get a lot of air through the nose. He states that he still feels as though he is not fully benefiting from the CPAP due to the septal deviation. He also notes he gets sinusitis about 2-3 times per year when the seasons change. Symptoms including facial pain/swelling and worsening nasal congestion. Denies rhinitis. He takes OTC cold remedies for these symptoms. He recently had allergy tested at [facility] and reports allergy to dust mites. He has been using over the counter Flonase with minimal improvement. Denies prior sinus imaging or nasal surgeries. Chase Munoz, 100 [facility] [address], [place], [address], [facility] - [facility] 07/13/2025 12:57:43
--- NOTE | 2025-07-27 08:02 | A.OFFPC_ITS ---
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 He is on TRT 0.03 mg three times weekly. Has surgery scheduled with [facility] in 10/26/2025 to repair deviated nasal septum. Acute issue(s) - None PMH - Sleep apnea on CPAP, hyperlipidemia, m igraines, deviated septum Social History - Nonsmoker. Smokes 3 cigars weekly. Grace s not vape. Drinks 1-2 beers every other week. Denies recreational drug use - Has been making healthy dietary choice s. Exercises routinely. Generally sleep well Health maintenance - Last eye exam was 2 years ago with [facility] [place]. 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 - Last dental visit was a few months ago - Last Tdap unknown but within the past 10 years - Has not been vaccinated for the flu ; declines vaccination [place] [facility] [facility] Medical History Headache Surgical History Hx of appendectomy Family History Mother High cholesterol Social History Housing: House Patient Tobacco Use Status: Current someday Tobacco user Tobacco use type: Cigar Years Smoked: Smoked 2 cigas weekly for the past 2 years e-Cigarette/Vaping Use: Never Used Second Hand Smoke Exposure: No service: No Current occupational status: employed Current occupation: [employer] Current occupational exposures/hazards: No Cognitive needs: No Hearing needs: No Vision needs: No Questionnaire PHQ-9 Over the last 2 weeks, how often have you been bothered by any of the following problems? 1. Little interest or pleasure in doing things: not at all 2. Feeling down, depressed, or hopeless: not at all 3. Trouble falling or staying asleep, or sleeping too much: not at all 4. Feeling tired or having little energy: not at all 5. Poor appetite or overeating: not at all 6. Feeling bad about yourself - or that you are a failure or have let yourself or your family down: not at all 7. Trouble concentrating on things, such as reading the newspaper or watching television: not at all 8. Moving or speaking so slowly that other people could have noticed. Or the opposite - being so fidgety or restless that you have been moving around a lot more than usual: not at all 9. Thoughts that you would be better off or of hurting yourself in some way: not at all Total score: 0 Depression Screening Interpretation: Negative Depression Screening Done: Yes 36339 - PHQ-9 Billing: Yes Source: Developed by Drs. David Medina, Candi Cano, Jeb Lagunas and colleagues, with an educational abdi from [employer]. Thrive Questionnaire Date Thrive assessed: 07/27/25 I am a: Patient What is your living situation today?: I have a steady place to live Within the past 12 months, did the food you bought not last and you didn't have the money to get more?: Never true Within the past 12 months, did you worry whether your food would run out before you got money to buy more?: Never true Do you have trouble paying for medicines?: No Do you have trouble getting transportation to medical appointments?: No Do you have trouble paying your heating and electricity bill?: No Do you have trouble taking care of your child, family member or friend?: No Do you have trouble with day-to-day activities such as bathing, preparing meals, shopping, managing finances, etc.?: No Are you currently unemployed and looking for a job?: No Are you interested in more education?: No Please select the resources that you would like help with: None Currently or been in a relationship where the following occur: No concerns reported THRIVE Score: 0 AUDIT C Alcohol Use Questionnaire (AUDIT-C) 1. How often do you have a drink containing alcohol?: 2-4 times a month 2. How many drinks containing alcohol do you have on a typical day when you are drinking?: 1 or 2 3. How often do you have six or more drinks on one occasion?: Never Total Score: 2 Score Reviewed/Action Taken: Yes HONEY-7 AMB Questionnaire HONEY-7 Date HONEY - 7 assessed: 07/27/25 Feeling nervous, anxious, or on edge: 0 = Not at all Not being able to stop or control worryin = Not at all Worrying too much about different things: 0 = Not at all Trouble relaxin = Not at all Being so restless that it is hard to sit still: 0 = Not at all Becoming easily annoyed or irritable: 0 = Not at all Feeling afraid as if something awful might happen: 0 = Not at all Total HONEY-7 score (0-4 normal; 5-9 mild; 10-14 moderate; 15-21 severe): 0 Source: Developed by Drs. David Medina, Candi Cano, Jeb Lagunas and colleagues, with an educational abdi from [employer]. HONEY-7 Assessment Billing HONEY-7 Assessment Tool: HONEY-7 Assessment 39276 Review of Systems Const Details: Denies chills, Denies fatigue, Denies fever(s), Denies headache(s) and Denies weakness HEENT Denies change in vision, Denies dizziness, Denies headache(s), Denies hearing loss, Denies nasal congestion, Denies sinus pain, Denies sinus pressure and Denies sore throat Card Denies chest pain, Denies lightheadedness, Denies dyspnea and Denies other (palp itations) Resp Denies cough, Denies dyspnea and Denies wheezing GI Denies abdominal pain, Denies melena, Denies hematochezia, Denies change in bowel habits, Denies dyspepsia and Denies nausea Denies hematuria and Denies dysuria Musc Denies abnormal gait, Denies myalgias, Denies arthralgias, Denies numbness and Denies tingling Skin/Breast Denies rash, Denies unusual bruising and Denies wounds Neuro Denies abnormal gait, Denies dizziness, Denies headache(s), Denies memory loss, Denies numbness, Denies Sensory deficit (Neuro), Denies tingling and Denies weakness Psych Denies anxiety, Denies depression and Denies memory loss Endo Denies cold intolerance, Denies fatigue, Denies heat intolerance, Denies polydipsia and Denies polyuria Kojo/Lymph Denies easy bleeding and Denies easy bruising Aller/Immun Denies wheezing Physical exam (Primary Care) Vital Signs: Last Vital Signs Temp 97.6 F 07/27/25 08:06 Pulse 77 07/27/25 08:06 Resp 16 07/27/25 08:06 BP 125/59 L 07/27/25 08:06 Pulse Ox 96 07/27/25 08:06 Oxygen Delivery Method Room Air 07/27/25 08:06 BMI result Body Mass Index 31.3 Tobacco/Smoking Status: Tobacco use Status Tobacco use date assessed 07/27/25 07/27/25 08:10 Patient Tobacco Use Status Current someday Tobacco 07/27/25 08:03 Tobacco use type Cigar 07/27/25 08:03 e-Cigarette/Vaping Use Never Used 07/27/25 08:03 PHQ-9: PHQ-9 Score PHQ-9: Total score 0 07/31/25 14:59 Depression Screening Interpretation: Negative Thrive Assessment: Date of Thrive Assessment Date Thrive assessed 07/27/25 07/27/25 08:03 Currently or been in a relationship where the following occur: No concerns reported Const Other: General: no acute distress, well developed, alert and awake Nutritional Appearance: well nourished Orientation/consciousness: patient oriented x3 HENMT Head: Yes normocephalic and Yes atraumatic Ears: hearing grossly normal bilaterally and TM's normal bilaterally General nose exam: Normal external nose present and Normal nares present Mouth: Normal oral and palatal mucosa present and moist mucous membranes Teeth and gingiva: dentition normal Throat: Yes oropharynx normal Eyes Pupils: Equal, round and reactive pupils present and Pupil accommodation reflex normal EOM: EOMs intact bilaterally Neck Neck: Yes normal visual inspection, Yes no lymphadenopathy and Yes trachea midline Thyroid: Thyroid normal Carotids: no bruits Lymphatic: no lymphadenopathy noted Chest Chest palpation & inspection: normal inspection of the chest Resp Effort & Inspection: normal respiratory effort Auscultation: clear to auscultation bilaterally Cardio Rate: regular rate Rhythm: regular rhythm Heart sounds: S1 normal heart sound present, S2 normal heart sound present, no gallops, no murmurs and no rubs Bruits: no abdominal aortic bruits and no carotid bruits GI Palpation (GI): No Abdominal aortic bruit present, Soft to palpation, nontender, No hepatosplenomegaly present and No Rebound tenderness present Auscultation: normal bowel sounds General: Yes no CVA tenderness Back/Spine/Pelvis Back: no CVA tenderness Cervical Spine: cervical ROM normal and No Cervical spine tenderness Thoracic/Lumbar Spine: thoraco-lumbar ROM normal, No pain with thoraco-lumbar ROM, No thoracic spinal tenderness and No lumbar spinal tenderness Skin General: warm and dry. Normal skin color. Normal skin turgor Lesions: no lesions Rashes: no rashes Trauma: no lacerations or abrasions Wounds: no wounds Nails: normal Neuro General: patient oriented x3, gait normal and CN's II-XI intact bilaterally Cranial nerves: Yes Equal, round and reactive pupils present Cognition (Neuro): normal cognition Gait exam (Neuro): Normal gait present Motor exam (neuro): 5/5 motor strength present throughout Sensory Exam: No Sensory deficit (Neuro) Deep tendon reflexes (DTR's): Right patellar reflex intensity grade: 2+ and Left patellar reflex intensity grade: 2+ Extrem General: Yes normal to inspection, No edema and No calf tenderness Psych Appearance: grossly normal Affect: normal affect Attitude: cooperative Thought process: Normal thought process present Coding Level of Care Code Est Pt Prev Care 40-64y(37031) Diagnoses Normal physical examination, routine Z00.00 Laboratory tests ordered as part of a complete physical exam (CPE) Z00.00 Additional Codes HONEY-7 Assessment Billing - HONEY-7 Assessment Tool: HONEY-7 Assessment 04496 ([id number]) PHQ-9 - 45680 - PHQ-9 Billing: Yes ([id number]) Assessment & Plan Assessment & Plan (1) Normal physical examination, routine: Code(s): Z00.00 - Encounter for general adult medical examination without abnormal findings Category: Medical Plan: No significant functional limitation ordered. Healthy diet and routine exercise encouraged. Perform lab work and follow-up for a telehealth visit for labs review in 2-3 weeks. Return sooner with symptoms or concerns. Verbalized understanding and agreed with the plan. (2) Laboratory tests ordered as part of a complete physical exam (CPE): Code(s): Z00.00 - Encounter for general adult medical examination without abnormal findings Category: Medical Plan: Fasting labs ordered as part of a complete physical exam. Advised to fast for at least 10 hours before getting labs drawn. May drink water Verbalized understanding and agreed with treatment plan. Orders: Orders Complete Blood Count Auto Diff 07/27/25 Z. - Encounter for general adult medical examination without abnormal findings Comprehensive [place]. Panel Fast 07/27/25 Z. - Encounter for general adult medical examination without abnormal findings TSH reflex Free T4 07/27/25 Z. - Encounter for general adult medical examination without abnormal findings UA CC w/rflx Micro + Cult 07/27/25 Z00. - Encounter for general adult medical examination without abnormal findings PSA, Ultra Sensitive 07/27/25 Z. - Encounter for general adult medical examination without abnormal findings Lipid Panel 07/27/25 Z. - Encounter for general adult medical examination without abnormal findings Microalbumin, Random (w Creat) 07/27/25 Z. - Encounter for general adult medical examination without abnormal findings Vitamin D 25-OH Total 07/27/25 Z00. - Encounter for general adult medical examination without abnormal findings
[2025-07-27 08:06] VITALS: BP 125/59; PULSE 77; RESP 16; TEMP 36.4; O2SAT 96; BMI 31.3
== END 2025-07-27 08:37 | disposition home or self-care (01) ==
LOC: HO.HMCFM 07:56
PROVIDERS: PCP Nurse Practitioner Family; Visit Provider Nurse Practitioner Family
DX: Z00.00 Encounter for general adult medical examination without abnormal findings (principal)

== ENCOUNTER → 2025-07-27 07:55 | Outpatient (BNVA) | payer OTHER, SELFPAY | PROVIDERS: PCP Nurse Practitioner Family; Visit Provider Nurse Practitioner Family | DX: Z00.00 Encounter for general adult medical examination without abnormal findings (principal) | CPT/HCPCS: 96127 ==